=== PATIENT | female | born 1955 | race Caucasian/White ===

== ENCOUNTER 2017-01-09 02:25 | Emergency (ER) | payer MEDICARE, OTHER ==
[~2017-01-09] VITALS: Ht 154.9 cm; Wt 59.9 kg
[~2017-01-09 02:25] MED LIST: ASPI81TA31 PO; BENA40TA2 PO; FLUO10TA PO
[2017-01-09] MEDS ORDERED: IV NORMAL SALINE 1000 ML BAG IV ONE (03:15)
[2017-01-09] MEDS ORDERED: MORPHINE SULFATE 2 MG/1 ML DISP.SYRIN IV ONE (03:15)
[2017-01-09] MEDS ORDERED: PROCHLORPERAZINE EDISYLATE 10 MG/2 ML VIAL IV ONE (03:15)
[2017-01-09] MEDS ORDERED: MORPHINE SULFATE 2 MG/1 ML DISP.SYRIN ONE (03:34)
[2017-01-09] MEDS ORDERED: PROCHLORPERAZINE EDISYLATE 10 MG/2 ML VIAL ONE ×2 (03:34→03:39)
[2017-01-09 03:50] LABS: BILIRUBIN,DIRECT 0.1 mg/dL (0.0-0.2); BILIRUBIN,TOTAL 0.3 mg/dL (0.2-1.0); CREATININE 0.9 mg/dL (0.6-1.3); POTASSIUM 4.2 mmol/L (3.5-5.1); TOTAL PROTEIN, SERUM 7.2 g/dL (6.4-8.2)
[2017-01-09 03:58] LABS: BASOPHILS % (AUTO) 0.2 % (0.0-2.0); EOSINOPHILS % (AUTO) 0.2 % (0.0-7.0); HEMATOCRIT 39.1 % (37-47); HEMOGLOBIN 12.9 G/DL (12.0-16.0); LYMPHOCYTES # (AUTO) 1.3 K/UL (0.8-4.8); LYMPHOCYTES % (AUTO) 11.4 % (20.5-51.5); MEAN CORPUSCULAR HEMOGLOBIN 28.6 UUG (27.0-31.0); MEAN CORPUSCULAR HGB CONC 33 g/dL (32.0-37.0); MEAN CORPUSCULAR VOLUME 86.7 FL (81.0-99.0); MONOCYTES # (AUTO) 0.4 K/UL (0.1-1.30); MONOCYTES % (AUTO) 3.6 % (0.0-11.0); NEUTROPHILS # (AUTO) 9.6 K/UL (1.8-8.9); NEUTROPHILS % (AUTO) 84.6 % (38.5-71.5); PLATELET COUNT (AUTO) 321 K/UL (150-450); RED BLOOD CELL COUNT(AUTO) 4.51 MIL/UL (4.2-5.4); WHITE BLOOD COUNT (AUTO) 11.3 K/UL (4.0-11.2)
--- NOTE | 2017-01-09 04:00 | NUR ---
Patient is resting comfortably in bed with eyes closed
[2017-01-09 04:29] VITALS: BP 138/89
--- NOTE | 2017-01-09 04:32 | NUR ---
Patient discharged to home in stable conditon. Written and verbal after care instructions given. Patient verbalizes understanding of instructions.
== END 2017-01-09 04:32 | disposition home or self-care (01) ==
LOC: ER 02:26
DX: R39.2 Extrarenal uremia (principal); F41.9 Anxiety disorder, unspecified; R11.2 Nausea with vomiting, unspecified; Z88.8 Allergy status to other drugs, medicaments and biological substances
CPT/HCPCS: 36415; 80048; 80076; 83690; 85025; 93005; 96361; 96374; 96375; 99285; A4663; J0780; J2270; J7030

== ENCOUNTER 2017-01-12 12:31 | Emergency (ER) | payer MEDICARE, OTHER ==
[~2017-01-12] VITALS: Ht 154.9 cm; Wt 59.9 kg
[2017-01-12] MEDS ORDERED: BENA40TA67 PO (12:39)
[2017-01-12] MEDS ORDERED: MIRT15TA PO (12:39)
[2017-01-12] MEDS ORDERED: OLAN10TA3 PO (12:39)
[2017-01-12] MEDS ORDERED: LORAZEPAM 2 MG/1 ML VIAL IV ONE (12:45)
[2017-01-12] MEDS ORDERED: IV NORMAL SALINE 1000 ML BAG IV ONE (12:45)
[2017-01-12] MEDS ORDERED: PROCHLORPERAZINE EDISYLATE 10 MG/2 ML VIAL IV ONE (13:15)
[2017-01-12] MEDS ORDERED: LORAZEPAM 2 MG/1 ML VIAL ONE (13:15)
[2017-01-12] MEDS ORDERED: PROCHLORPERAZINE EDISYLATE 10 MG/2 ML VIAL ONE (13:20)
--- NOTE | 2017-01-12 13:23 | NUR ---
EDISON speaking with Dr. Copeland, patient's psychiatrist, to discuss medication changes.
[2017-01-12 13:37] LABS: BASOPHILS # (AUTO) 0.3 K/uL (0.0-8.0); HEMOGLOBIN 14.1 G/DL (12.0-16.0); MONOCYTES # (AUTO) 0.2 K/UL (0.1-1.30)
[2017-01-12 13:43] LABS: CREATININE 0.7 mg/dL (0.6-1.3)
[2017-01-12 13:48] LABS: BASOPHILS % (AUTO) 1.8 % (0.0-2.0); EOSINOPHILS % (AUTO) 0.1 % (0.0-7.0); HEMATOCRIT 42.8 % (37-47); LYMPHOCYTES # (AUTO) 1.4 K/UL (0.8-4.8); LYMPHOCYTES % (AUTO) 9.6 % (20.5-51.5); MEAN CORPUSCULAR HEMOGLOBIN 28.5 UUG (27.0-31.0); MEAN CORPUSCULAR HGB CONC 33 g/dL (32.0-37.0); MEAN CORPUSCULAR VOLUME 86.5 FL (81.0-99.0); NEUTROPHILS # (AUTO) 13.2 K/UL (1.8-8.9); NEUTROPHILS % (AUTO) 87.5 % (38.5-71.5); PLATELET COUNT (AUTO) 311 K/UL (150-450); RED BLOOD CELL COUNT(AUTO) 4.95 MIL/UL (4.2-5.4); WHITE BLOOD COUNT (AUTO) 15.1 K/UL (4.0-11.2)
[2017-01-12 13:55] LABS: BILIRUBIN,DIRECT 0.1 mg/dL (0.0-0.2); BILIRUBIN,TOTAL 0.3 mg/dL (0.2-1.0); TOTAL PROTEIN, SERUM 8.3 g/dL (6.4-8.2)
--- NOTE | 2017-01-12 14:28 | NUR ---
Patient is resting comfortably in bed with eyes closed, NAD noted.
--- NOTE | 2017-01-12 14:39 | NUR ---
IV removed. Catheter intact and site benign. Pressure and 4x4 gauze applied to site. No bleeding noted.
[2017-01-12 14:40] VITALS: BP 176/100
--- NOTE | 2017-01-12 14:41 | NUR ---
Patient discharged to home in stable conditon. Written and verbal after care instructions given. Patient verbalizes understanding of instructions. pt left ER w/ steady gait accompained by daughter.
== END 2017-01-12 14:42 | disposition home or self-care (01) ==
LOC: ER 12:31
DX: R11.2 Nausea with vomiting, unspecified (principal); Z79.82 Long term (current) use of aspirin; Z88.8 Allergy status to other drugs, medicaments and biological substances
CPT/HCPCS: 36415; 70030-TC; 71010; 83690; 85025; 85730; 93005; A4663; J0780; J2060; J7030

== ENCOUNTER 2017-01-14 08:12 | Emergency (ER) | payer MEDICARE, OTHER ==
[~2017-01-14] VITALS: Ht 154.9 cm; Wt 62.6 kg
[~2017-01-14 08:12] MED LIST changes: +BENA40TA67 PO; +MIRT15TA PO; +OLAN10TA3 PO
[2017-01-14] MEDS ORDERED: IV NORMAL SALINE 1000 ML BAG IV ONE (08:45)
[2017-01-14] MEDS ORDERED: PROCHLORPERAZINE EDISYLATE 10 MG/2 ML VIAL IV ONE (08:45)
[2017-01-14] MEDS ORDERED: PROCHLORPERAZINE EDISYLATE 10 MG/2 ML VIAL ONE ×2 (09:03→11:00)
[2017-01-14] MEDS ORDERED: CLONIDINE HCL 0.1 MG TABLET PO ONE ×2 (09:15→10:15)
[2017-01-14] MEDS ORDERED: CLONIDINE HCL 0.1 MG TABLET ONE ×2 (09:29→10:31)
[2017-01-14] MEDS ORDERED: LORAZEPAM 2 MG/1 ML VIAL IV ONE (09:30)
[2017-01-14 09:34] LABS: CREATININE 0.8 mg/dL (0.6-1.3)
[2017-01-14 09:35] LABS: BASOPHILS % (AUTO) 0.4 % (0.0-2.0); EOSINOPHILS % (AUTO) 0.3 % (0.0-7.0); HEMATOCRIT 38.7 % (37-47); HEMOGLOBIN 12.9 G/DL (12.0-16.0); LYMPHOCYTES # (AUTO) 1.1 K/UL (0.8-4.8); LYMPHOCYTES % (AUTO) 11.5 % (20.5-51.5); MEAN CORPUSCULAR HEMOGLOBIN 28.7 UUG (27.0-31.0); MEAN CORPUSCULAR HGB CONC 33 g/dL (32.0-37.0); MEAN CORPUSCULAR VOLUME 86.6 FL (81.0-99.0); MONOCYTES # (AUTO) 0.4 K/UL (0.1-1.30); MONOCYTES % (AUTO) 4.4 % (0.0-11.0); NEUTROPHILS # (AUTO) 8.4 K/UL (1.8-8.9); NEUTROPHILS % (AUTO) 83.4 % (38.5-71.5); PLATELET COUNT (AUTO) 307 K/UL (150-450); RED BLOOD CELL COUNT(AUTO) 4.48 MIL/UL (4.2-5.4); WHITE BLOOD COUNT (AUTO) 9.9 K/UL (4.0-11.2)
[2017-01-14] MEDS ORDERED: LORAZEPAM 2 MG/1 ML VIAL ONE ×2 (09:37→11:00)
[2017-01-14 09:39] LABS: BILIRUBIN,DIRECT 0.1 mg/dL (0.0-0.2); BILIRUBIN,TOTAL 0.3 mg/dL (0.2-1.0); TOTAL PROTEIN, SERUM 7.6 g/dL (6.4-8.2)
--- NOTE | 2017-01-14 09:50 | NUR ---
pt resting, arousable, daughter at bedside, ra sat 98%
--- NOTE | 2017-01-14 11:00 | NUR ---
per pt daughter, pt missed the am dose of lotensin 40 mg.
--- NOTE | 2017-01-14 11:00 | NUR ---
annabel marte at bedside talking to pt daughter.
[2017-01-14] MEDS ORDERED: BENAZEPRIL HCL 10 MG TABLET PO ONE (11:15)
[2017-01-14] MEDS ORDERED: BENAZEPRIL HCL 10 MG TABLET ONE (11:18)
--- NOTE | 2017-01-14 11:25 | NUR ---
pt daughter and the pt want to go home. pt says has blood pressure cuff at home and is able to monitor the blood pressure at home. pt seems comfortable. notified.
--- NOTE | 2017-01-14 11:26 | NUR ---
Patient discharged to home in stable conditon. Written and verbal after care instructions given. Patient verbalizes understanding of instructions.pt walks in steady gait. pt says feels better, pt not driving. pt accompanied by daughter.
[2017-01-14 11:27] VITALS: BP 171/101
== END 2017-01-14 11:40 | disposition home or self-care (01) ==
LOC: ER 08:12
DX: F41.9 Anxiety disorder, unspecified (principal); R11.2 Nausea with vomiting, unspecified; I10 Essential (primary) hypertension; F32.9 Major depressive disorder, single episode, unspecified; Z88.8 Allergy status to other drugs, medicaments and biological substances
CPT/HCPCS: 36415; 71010; 76705; 80048; 80076; 83690; 84484; 85025; 85730; 93005; 96361; 96374; 96375; 99285; A4663; J0780; J2060; J7030; 70030-TC

== ENCOUNTER 2017-05-18 14:49 | Emergency (ER) | payer MEDICARE, OTHER ==
[~2017-05-18] VITALS: Ht 154.9 cm; Wt 59.0 kg
[~2017-05-18 14:49] MED LIST changes: -BENA40TA2 PO; -FLUO10TA PO
[2017-05-18 16:19] LABS: BASOPHILS % (AUTO) 0.1 % (0.0-2.0); HEMATOCRIT 42.2 % (31.2-41.9); HEMOGLOBIN 14.1 g/dL (10.9-14.3); LYMPHOCYTES # (AUTO) 0.9 K/uL (20.0-40.0); LYMPHOCYTES % (AUTO) 6.8 % (20.5-51.5); MEAN CORPUSCULAR HEMOGLOBIN 28.6 uug (24.7-32.8); MEAN CORPUSCULAR HGB CONC 33 g/dL (32.3-35.6); MEAN CORPUSCULAR VOLUME 85.6 fL (75.5-95.3); MONOCYTES # (AUTO) 0.7 K/uL (2.0-10.0); NEUTROPHILS % (AUTO) 88.1 % (38.5-71.5); PLATELET COUNT (AUTO) 238 K/uL (179-408); RED BLOOD CELL COUNT(AUTO) 4.93 MIL/uL (3.63-4.92); WHITE BLOOD COUNT (AUTO) 13.6 K/uL (3.8-11.8)
[2017-05-18 16:25] LABS: CREATININE 0.9 mg/dL (0.6-1.3); POTASSIUM 4.3 mmol/L (3.5-5.1)
[2017-05-18] MEDS: IV NORMAL SALINE 500 ML BAG IV ONE (16:30)
[2017-05-18 16:31] LABS: BILIRUBIN,DIRECT 0.2 mg/dL (0.0-0.2); BILIRUBIN,TOTAL 0.4 mg/dL (0.2-1.0); TOTAL PROTEIN, SERUM 7.6 g/dL (6.4-8.2)
[2017-05-18 17:23] LABS: BAND % (MANUAL) 28 % (0-10); LYMPHOCYTES % (MANUAL) 10 % (20-40); MONOCYTES % (MANUAL) 6 % (2-10); NEUTROPHILS % (MANUAL) 56 % (42-75)
[2017-05-18] MEDS: CEFTRIAXONE 1 G in IV DEXTROSE 5% 50 ML IV ONE (17:35)
[2017-05-18] MEDS ORDERED: CEFTRIAXONE 1 G VIAL ONE (17:58)
--- NOTE | 2017-05-18 18:33 | NUR ---
Patient discharged to home in stable conditon. Written and verbal after care instructions given. Patient verbalizes understanding of instructions.PT WITH DAUGHTER. NO SIGN OF DISTRESS. PT TO HER BASELINE.
[2017-05-18 18:35] VITALS: BP 141/86
== END 2017-05-18 18:38 | disposition home or self-care (01) ==
LOC: ER 14:49
DX: J18.9 Pneumonia, unspecified organism (principal); Z79.82 Long term (current) use of aspirin; Z88.8 Allergy status to other drugs, medicaments and biological substances
CPT/HCPCS: 36415; 71010; 71250; 80048; 80076; 83605; 84484; 85025; 85730; 87040 ×2; 93005; 96361; 96365; 99285; A4663; J0696; J3490; J7040; 70030-TC

== ENCOUNTER 2017-05-23 18:26 | Inpatient (IN) | payer MEDICARE, OTHER ==
[~2017-05-23] VITALS: Ht 154.9 cm; Wt 63.5 kg
[~2017-05-23 18:26] MED LIST changes: -ASPI81TA31 PO; -OLAN10TA3 PO
[2017-05-23] MEDS ORDERED: ALBUTEROL SULFATE 2.5 MG/3 ML NEBU NEB ONE (22:00)
[2017-05-23] MEDS ORDERED: IPRATROPIUM BROMIDE 0.5 MG/2.5 ML NEBU NEB ONE (22:00)
[2017-05-23] MEDS ORDERED: IV NORMAL SALINE 1000 ML BAG IV ONE (22:00)
[2017-05-23] MEDS ORDERED: CLINDAMYCIN PHOSPHATE IV 600 MG in IV DEXTROSE 5% 100 ML IV ONE (22:00)
[2017-05-23] MEDS ORDERED: LEVOFLOXACIN 750MG/D5W 150 ML IV ONE ×2 (22:00→23:33)
[2017-05-23] MEDS ORDERED: CLINDAMYCIN PHOSPHATE 600 MG/4 ML VIAL ONE (22:21)
[2017-05-23] MEDS ORDERED: ALBUTEROL SULFATE 2.5 MG/3 ML NEBU ONE (22:23)
[2017-05-23] MEDS ORDERED: IPRATROPIUM BROMIDE 0.5 MG/2.5 ML NEBU ONE (22:23)
[2017-05-23 22:29] LABS: BASOPHILS % (AUTO) 0.1 % (0.0-2.0); EOSINOPHILS % (AUTO) 0.1 % (0.0-7.0); HEMATOCRIT 33.2 % (31.2-41.9); HEMOGLOBIN 11.3 g/dL (10.9-14.3); LYMPHOCYTES # (AUTO) 1.4 K/uL (20.0-40.0); LYMPHOCYTES % (AUTO) 8.4 % (20.5-51.5); MEAN CORPUSCULAR HEMOGLOBIN 29.4 uug (24.7-32.8); MEAN CORPUSCULAR HGB CONC 34 g/dL (32.3-35.6); MEAN CORPUSCULAR VOLUME 86.2 fL (75.5-95.3); MONOCYTES # (AUTO) 2.1 K/uL (2.0-10.0); MONOCYTES % (AUTO) 12.2 % (0.0-11.0); NEUTROPHILS # (AUTO) 13.4 K/uL (1.8-8.9); NEUTROPHILS % (AUTO) 79.2 % (38.5-71.5); PLATELET COUNT (AUTO) 462 K/uL (179-408); RED BLOOD CELL COUNT(AUTO) 3.85 MIL/uL (3.63-4.92); WHITE BLOOD COUNT (AUTO) 16.9 K/uL (3.8-11.8)
[2017-05-23 22:38] LABS: CREATININE 0.8 mg/dL (0.6-1.3); POTASSIUM 4.2 mmol/L (3.5-5.1)
[2017-05-23 22:50] LABS: BILIRUBIN,DIRECT 0.2 mg/dL (0.0-0.2); BILIRUBIN,TOTAL 0.4 mg/dL (0.2-1.0); TOTAL PROTEIN, SERUM 7.2 g/dL (6.4-8.2)
[2017-05-23] MEDS ORDERED: MIRTAZAPINE 15 MG TABLET PO ONE (23:45)
[2017-05-23 23:48] LABS: BAND % (MANUAL) 4 % (0-10); EOSINOPHILS % (MANUAL) 1 % (0-8); LYMPHOCYTES % (MANUAL) 15 % (20-40); MONOCYTES % (MANUAL) 5 % (2-10); NEUTROPHILS % (MANUAL) 75 % (42-75)
[2017-05-23] MEDS ORDERED: MIRTAZAPINE 15 MG TABLET ONE (23:58)
[2017-05-24] MEDS ORDERED: HYDROCODONE/APAP 5-325MG TABLET PO PRN (01:15)
[2017-05-24] MEDS ORDERED: ENOXAPARIN SODIUM 40 MG/0.4 ML DISP.SYRIN SQ SCH (01:15)
[2017-05-24] MEDS ORDERED: MAGNESIUM HYDROXIDE 30 ML LIQUID UDC PO PRN (01:15)
[2017-05-24] MEDS ORDERED: ONDANSETRON 4 MG/2 ML VIAL IV PRN (01:15)
[2017-05-24] MEDS ORDERED: LEVOFLOXACIN 500 MG/D5W 500 MG in PREMIXED 1 EACH IV SCH (01:15)
[2017-05-24] MEDS ORDERED: ACETAMINOPHEN 325 MG TABLET PO PRN (01:15)
[2017-05-24] MEDS ORDERED: Z GUARD REMEDY PASTE 57 GM TUBE TOP PRN (01:15)
[2017-05-24] MEDS: ALBUTEROL SULFATE 2.5 MG/3 ML NEBU NEB PRN ×3 (03:37→22:48)
[2017-05-24] MEDS ORDERED: ALBUTEROL SULFATE 2.5 MG/3 ML NEBU ONE ×3 (03:50→15:48)
[2017-05-24] MEDS: BENAZEPRIL HCL 20 MG TABLET PO SCH (12:09)
[2017-05-24] MEDS: IV NS 1000 ML 1,000 ML IV PRN ×2 (12:30→22:18)
[2017-05-24] MEDS ORDERED: IPRATROPIUM BROMIDE 0.5 MG/2.5 ML NEBU NEB PRN (15:00)
[2017-05-24] MEDS: methylPREDNISolone SOD SUCC 40 MG/ML VIAL IV SCH ×3 (15:48→23:25)
[2017-05-24] MEDS ORDERED: methylPREDNISolone SOD SUCC 40 MG/ML VIAL ONE (16:02)
[2017-05-24 18:41] VITALS: BP 156/82
[2017-05-24 21:01] VITALS: BP 152/97
[2017-05-24] MEDS: MIRTAZAPINE 15 MG TABLET PO SCH (22:17)
[2017-05-24] MEDS: LEVOFLOXACIN 500 MG/D5W 500 MG in PREMIXED 1 EACH IV SCH (22:18)
[2017-05-24] MEDS: IPRATROPIUM BROMIDE 0.5 MG/2.5 ML NEBU NEB PRN (22:48)
[2017-05-25 00:39] VITALS: BP 137/69
[2017-05-25] MEDS: IPRATROPIUM BROMIDE 0.5 MG/2.5 ML NEBU NEB PRN (04:39)
[2017-05-25] MEDS: ALBUTEROL SULFATE 2.5 MG/3 ML NEBU NEB PRN (04:39)
[2017-05-25] MEDS: methylPREDNISolone SOD SUCC 40 MG/ML VIAL IV SCH ×3 (05:23→18:00)
[2017-05-25 05:33] VITALS: BP 154/96
[2017-05-25 06:55] LABS: BASOPHILS % (AUTO) 0.2 % (0.0-2.0); HEMATOCRIT 30.5 % (31.2-41.9); HEMOGLOBIN 10.1 g/dL (10.9-14.3); LYMPHOCYTES # (AUTO) 0.8 K/uL (20.0-40.0); LYMPHOCYTES % (AUTO) 9.7 % (20.5-51.5); MEAN CORPUSCULAR HEMOGLOBIN 28.7 uug (24.7-32.8); MEAN CORPUSCULAR HGB CONC 33 g/dL (32.3-35.6); MEAN CORPUSCULAR VOLUME 86.5 fL (75.5-95.3); MONOCYTES # (AUTO) 0.2 K/uL (2.0-10.0); NEUTROPHILS # (AUTO) 6.9 K/uL (1.8-8.9); NEUTROPHILS % (AUTO) 87.1 % (38.5-71.5); PLATELET COUNT (AUTO) 499 K/uL (179-408); RED BLOOD CELL COUNT(AUTO) 3.53 MIL/uL (3.63-4.92); WHITE BLOOD COUNT (AUTO) 7.9 K/uL (3.8-11.8)
[2017-05-25 07:02] LABS: CREATININE 0.6 mg/dL (0.6-1.3); PHOSPHOROUS 3.3 mg/dL (2.5-4.9); POTASSIUM 4.2 mmol/L (3.5-5.1)
[2017-05-25] MEDS: ENOXAPARIN SODIUM 40 MG/0.4 ML DISP.SYRIN SQ SCH (08:00)
[2017-05-25] MEDS: BENAZEPRIL HCL 20 MG TABLET PO SCH (08:00)
[2017-05-25] MEDS: OSELTAMIVIR PHOSPHATE 75 MG CAPSULE PO SCH ×2 (09:39→20:08)
[2017-05-25 10:59] LABS: MAGNESIUM 1.9 mg/dL (1.8-2.4)
[2017-05-25 11:08] VITALS: BP 139/88
[2017-05-25] MEDS: IV NS 1000 ML 1,000 ML IV PRN (12:08)
[2017-05-25 15:00] VITALS: BP 157/91
[2017-05-25 20:00] VITALS: BP 157/92
[2017-05-25] MEDS: MIRTAZAPINE 15 MG TABLET PO SCH (20:08)
[2017-05-25] MEDS: LEVOFLOXACIN 500 MG/D5W 500 MG in PREMIXED 1 EACH IV SCH (22:45)
[2017-05-26] MEDS: methylPREDNISolone SOD SUCC 40 MG/ML VIAL IV SCH ×4 (00:17→11:19)
[2017-05-26] MEDS ORDERED: methylPREDNISolone SOD SUCC 125 MG/2 ML VIAL ONE (00:33)
[2017-05-26] MEDS: IV NS 1000 ML 1,000 ML IV PRN (02:26)
[2017-05-26 04:28] VITALS: BP 133/85
[2017-05-26] MEDS: BENAZEPRIL HCL 20 MG TABLET PO SCH (08:08)
[2017-05-26] MEDS: OSELTAMIVIR PHOSPHATE 75 MG CAPSULE PO SCH (08:08)
[2017-05-26] MEDS: ENOXAPARIN SODIUM 40 MG/0.4 ML DISP.SYRIN SQ SCH (08:09)
[2017-05-26 11:56] VITALS: BP 161/92
[2017-05-26 14:30] VITALS: BP 162/98
== END 2017-05-26 15:00 | disposition home or self-care (01) | DRG 195 ==
LOC: ER 18:27 → TRANSITION 05-24 10:29 → TELE 05-24 17:07 → MED 05-25 11:54
PROVIDERS: ADMIT Internal Medicine
DX: J15.9 Unspecified bacterial pneumonia (principal); D64.9 Anemia, unspecified; J20.9 Acute bronchitis, unspecified; E66.9 Obesity, unspecified; Z68.26 Body mass index [BMI] 26.0-26.9, adult; F32.9 Major depressive disorder, single episode, unspecified; F41.9 Anxiety disorder, unspecified; Z79.82 Long term (current) use of aspirin; I70.0 Atherosclerosis of aorta
CPT/HCPCS: 36415; 70030-TC; 71045; 83605; 83735; 84100; 85025; 85730; 87040; 87400; 93005; 94640; 94664; A4663; J1650; J1956; J2920; J2930; J3490; J3590; J7030; J7060

== ENCOUNTER 2017-10-11 09:54 | Emergency (ER) | payer MEDICARE, OTHER ==
[~2017-10-11] VITALS: Ht 157.5 cm; Wt 62.6 kg
[2017-10-11] MEDS ORDERED: OLAN10TA3 PO (10:05)
[2017-10-11] MEDS ORDERED: IV NORMAL SALINE 500 ML BAG IV ONE (10:15)
[2017-10-11] MEDS ORDERED: LORAZEPAM 2 MG/1 ML VIAL IV ONE (10:15)
[2017-10-11] MEDS ORDERED: LORAZEPAM 2 MG/1 ML VIAL ONE (10:25)
--- NOTE | 2017-10-11 10:50 | NUR ---
Patient is resting comfortably in bed with eyes closed, NAD noted.
[2017-10-11 11:07] VITALS: BP 188/96
--- NOTE | 2017-10-11 11:07 | NUR ---
Patient discharged to home in stable conditon. Written and verbal after care instructions given. Patient verbalizes understanding of instructions. Pt left Er accompained by daughter.
--- NOTE | 2017-10-11 11:07 | NUR ---
IV removed. Catheter intact and site benign. Pressure and 4x4 gauze applied to site. No bleeding noted.
[2017-10-28] MEDS ORDERED: LORA0.5T PO (10:08)
[2017-10-28] MEDS ORDERED: SERT25TA PO (10:08)
[2017-10-28] MEDS ORDERED: BUSP5TAB3 PO (10:08)
[2017-10-28] MEDS ORDERED: METO-295 PO (10:08)
== END 2017-10-11 11:08 | disposition home or self-care (01) ==
LOC: ER 09:56
DX: F41.9 Anxiety disorder, unspecified (principal); F32.9 Major depressive disorder, single episode, unspecified; R11.2 Nausea with vomiting, unspecified
CPT/HCPCS: A4663; J2060; J7030

== ENCOUNTER 2018-11-28 03:36 | Emergency (ER) | payer MEDICARE, OTHER ==
[~2018-11-28] VITALS: Ht 162.6 cm; Wt 61.2 kg
[~2018-11-28 03:36] MED LIST changes: +BUSP5TAB3 PO; +LORA0.5T PO; +METO-295 PO; +OLAN10TA3 PO; +SERT25TA PO
[2018-11-28] MEDS ORDERED: diphenhydrAMINE 50 MG/1 ML VIAL ONE (03:50)
[2018-11-28] MEDS ORDERED: PROCHLORPERAZINE EDISYLATE 10 MG/2 ML VIAL ONE (03:51)
[2018-11-28] MEDS ORDERED: ONDANSETRON 4 MG/2 ML VIAL ONE (03:51)
[2018-11-28] MEDS ORDERED: LORAZEPAM 2 MG/1 ML VIAL ONE (03:52)
[2018-11-28] MEDS: diphenhydrAMINE 50 MG/1 ML VIAL IV ONE (03:53)
[2018-11-28] MEDS: PROCHLORPERAZINE EDISYLATE 10 MG/2 ML VIAL IV ONE (03:53)
[2018-11-28] MEDS: LORAZEPAM 2 MG/1 ML VIAL IV ONE (03:53)
[2018-11-28] MEDS: ONDANSETRON IV *ER 4 MG/2 ML VIAL IV ONE (03:54)
--- NOTE | 2018-11-28 03:56 | NUR ---
ER MD AT BEDSIDE FOR PATIENT EVALUATION
[2018-11-28 04:22] LABS: CREATININE 0.9 mg/dL (0.6-1.3); POTASSIUM 4.3 mmol/L (3.5-5.1)
[2018-11-28 04:24] LABS: BASOPHILS % (AUTO) 0.2 % (0.0-2.0); HEMOGLOBIN 12.5 g/dL (10.9-14.3); LYMPHOCYTES # (AUTO) 1.1 K/uL (20.0-40.0); MEAN CORPUSCULAR HEMOGLOBIN 28.8 uug (24.7-32.8); MEAN CORPUSCULAR HGB CONC 34 g/dL (32.3-35.6); MEAN CORPUSCULAR VOLUME 85.7 fL (75.5-95.3); MONOCYTES # (AUTO) 0.2 K/uL (2.0-10.0); MONOCYTES % (AUTO) 1.8 % (0.0-11.0); NEUTROPHILS # (AUTO) 8.8 K/uL (1.8-8.9); PLATELET COUNT (AUTO) 300 K/uL (179-408); RED BLOOD CELL COUNT(AUTO) 4.32 MIL/uL (3.63-4.92); WHITE BLOOD COUNT (AUTO) 10.1 K/uL (3.8-11.8)
--- NOTE | 2018-11-28 04:25 | NUR ---
CHRISTINE [phone] (DAUGHTER) CALL WHEN PATIENT IS READY FOR DIRECTOR OF INFORMATICS/DC HOME
[2018-11-28 04:27] LABS: BILIRUBIN,DIRECT 0.1 mg/dL (0.0-0.2); BILIRUBIN,TOTAL 0.4 mg/dL (0.2-1.0); TOTAL PROTEIN, SERUM 7.7 g/dL (6.4-8.2)
--- NOTE | 2018-11-28 06:02 | NUR ---
PATIENT ASLEEP IN BED, RESPONSIVE TO VERBAL AND TACTILE STIMULI. NO ACUTE DISTRESS NOTED. VSS
--- NOTE | 2018-11-28 06:51 | NUR ---
Report to Jasbir Martínez
--- NOTE | 2018-11-28 10:38 | NUR ---
PT IS SLEEPING IN BED #2A. PT's BROTHER IS AT BEDSIDE.
--- NOTE | 2018-11-28 12:29 | NUR ---
PT WAS D/C'd TO HOME AFTER DR GAMINO RE-EVALUATION. D/C INSTRUCTIONS GIVEN TO THE PT.
[2018-11-28 12:32] VITALS: BP 145/88
== END 2018-11-28 12:33 | disposition home or self-care (01) ==
LOC: ER 03:38
DX: F41.9 Anxiety disorder, unspecified (principal); R11.10 Vomiting, unspecified; G47.00 Insomnia, unspecified; M21.371 Foot drop, right foot; I10 Essential (primary) hypertension; F41.0 Panic disorder [episodic paroxysmal anxiety]; Z88.8 Allergy status to other drugs, medicaments and biological substances; Z79.899 Other long term (current) drug therapy
CPT/HCPCS: 29505; 36415; 73562; 74022; 80048; 80076; 83690; 85025; 93005; 96374; 96375; 99284; J0780; J1200; J2060; A4663; J2405

== ENCOUNTER 2018-11-30 07:53 | Emergency (ER) | payer MEDICARE, OTHER ==
[~2018-11-30] VITALS: Ht 152.4 cm; Wt 62.6 kg
--- NOTE | 2018-11-30 08:03 | NUR ---
DR ZIEGLER AT THE BEDSIDE FOR MSE.
[2018-11-30] MEDS ORDERED: LORAZEPAM 2 MG/1 ML VIAL ONE (08:10)
[2018-11-30] MEDS ORDERED: LORAZEPAM 2 MG/1 ML VIAL IM ONE (08:15)
[2018-11-30] MEDS ORDERED: diphenhydrAMINE 50 MG/1 ML VIAL ONE (08:29)
[2018-11-30] MEDS ORDERED: diphenhydrAMINE 50 MG/1 ML VIAL IM ONE (08:30)
[2018-11-30 08:32] VITALS: BP 145/89
--- NOTE | 2018-11-30 08:45 | NUR ---
Patient discharged to home in stable conditon. Written and verbal after care instructions given. Patient verbalizes understanding of instructions.
== END 2018-11-30 08:45 | disposition home or self-care (01) ==
LOC: ER 07:53
DX: F41.9 Anxiety disorder, unspecified (principal); R11.10 Vomiting, unspecified; I10 Essential (primary) hypertension; F41.0 Panic disorder [episodic paroxysmal anxiety]; Z88.8 Allergy status to other drugs, medicaments and biological substances; Z79.899 Other long term (current) drug therapy
CPT/HCPCS: 96372 ×2; 99284; J1200; J2060; A4663

== ENCOUNTER 2018-12-01 23:28 | Emergency (ER) | payer MEDICARE, OTHER ==
[~2018-12-01] VITALS: Ht 160 cm; Wt 61.7 kg
[2018-12-02] MEDS ORDERED: IV NORMAL SALINE 500 ML BAG IV ONE (00:15)
[2018-12-02] MEDS ORDERED: LORAZEPAM 2 MG/1 ML VIAL IV ONE (00:15)
[2018-12-02] MEDS ORDERED: PROCHLORPERAZINE EDISYLATE 10 MG/2 ML VIAL IV ONE (00:15)
[2018-12-02 00:17] LABS: BASOPHILS # (AUTO) 0.1 K/uL (0.0-8.0); BASOPHILS % (AUTO) 0.8 % (0.0-2.0); EOSINOPHILS # (AUTO) 0.1 K/uL (0.0-0.7); EOSINOPHILS % (AUTO) 0.9 % (0.0-7.0); HEMATOCRIT 38.2 % (31.2-41.9); HEMOGLOBIN 12.8 g/dL (10.9-14.3); LYMPHOCYTES # (AUTO) 2.1 K/uL (20.0-40.0); LYMPHOCYTES % (AUTO) 16.5 % (20.5-51.5); MEAN CORPUSCULAR HEMOGLOBIN 28.8 uug (24.7-32.8); MEAN CORPUSCULAR HGB CONC 34 g/dL (32.3-35.6); MEAN CORPUSCULAR VOLUME 85.9 fL (75.5-95.3); MONOCYTES # (AUTO) 0.7 K/uL (2.0-10.0); MONOCYTES % (AUTO) 5.2 % (0.0-11.0); NEUTROPHILS # (AUTO) 9.9 K/uL (1.8-8.9); NEUTROPHILS % (AUTO) 76.6 % (38.5-71.5); PLATELET COUNT (AUTO) 379 K/uL (179-408); RED BLOOD CELL COUNT(AUTO) 4.45 MIL/uL (3.63-4.92)
[2018-12-02] MEDS ORDERED: LORAZEPAM 2 MG/1 ML VIAL ONE (00:18)
[2018-12-02] MEDS ORDERED: PROCHLORPERAZINE EDISYLATE 10 MG/2 ML VIAL ONE (00:18)
[2018-12-02 00:26] LABS: CREATININE 0.9 mg/dL (0.6-1.3); POTASSIUM 4.5 mmol/L (3.5-5.1)
[2018-12-02 00:32] LABS: BILIRUBIN,DIRECT 0.1 mg/dL (0.0-0.2); BILIRUBIN,TOTAL 0.4 mg/dL (0.2-1.0); TOTAL PROTEIN, SERUM 7.7 g/dL (6.4-8.2)
--- NOTE | 2018-12-02 01:18 | NUR ---
Pt is resting in bed comfortably. No episodes of vomiting. Daughter at bedside. Vital signs stable.
--- NOTE | 2018-12-02 01:50 | NUR ---
IV removed. Catheter intact and site benign. Pressure and 4x4 gauze applied to site. No bleeding noted.
--- NOTE | 2018-12-02 01:55 | NUR ---
Patient discharged to home in stable conditon. Written and verbal after care instructions given. Patient verbalizes understanding of instructions. Pt walked out of ER in stable gait accompanied by daughter. Pt states she feels better. No N/V. PO challenge well tolerated.
[2018-12-02 01:57] VITALS: BP 141/79
== END 2018-12-02 01:58 | disposition home or self-care (01) ==
LOC: ER 23:28
DX: F41.9 Anxiety disorder, unspecified (principal); R11.10 Vomiting, unspecified; F41.0 Panic disorder [episodic paroxysmal anxiety]; F32.9 Major depressive disorder, single episode, unspecified; Z88.8 Allergy status to other drugs, medicaments and biological substances; Z79.899 Other long term (current) drug therapy
CPT/HCPCS: 36415; 80048; 80076; 83690; 84484; 85025; 93005; 96374; 96375; 99284; J0780; J2060; 70030-TC; A4663; J7040

== ENCOUNTER 2018-12-06 21:33 | Inpatient (IN) | payer MEDICARE, OTHER ==
[~2018-12-06] VITALS: Ht 190.5 cm; Wt 59.9 kg
[2018-12-06] MEDS ORDERED: PROP60TA18 PO (21:43)
[2018-12-06] MEDS ORDERED: MORPHINE SULFATE 2 MG/1 ML DISP.SYRIN IV ONE (22:15)
[2018-12-06] MEDS ORDERED: PROCHLORPERAZINE EDISYLATE 10 MG/2 ML VIAL IV ONE (22:15)
[2018-12-06] MEDS ORDERED: IV NORMAL SALINE 1000 ML BAG IV ONE (22:15)
[2018-12-06] MEDS ORDERED: diphenhydrAMINE 50 MG/1 ML VIAL IV ONE (22:15)
[2018-12-06] MEDS ORDERED: diphenhydrAMINE 50 MG/1 ML VIAL ONE (22:28)
[2018-12-06] MEDS ORDERED: MORPHINE SULFATE 2 MG/1 ML DISP.SYRIN ONE (22:28)
[2018-12-06] MEDS ORDERED: PROCHLORPERAZINE EDISYLATE 10 MG/2 ML VIAL ONE (22:28)
[2018-12-06 22:37] LABS: BASOPHILS # (AUTO) 0.1 K/uL (0.0-8.0); BASOPHILS % (AUTO) 0.5 % (0.0-2.0); EOSINOPHILS # (AUTO) 0.1 K/uL (0.0-0.7); EOSINOPHILS % (AUTO) 0.7 % (0.0-7.0); HEMATOCRIT 42.8 % (31.2-41.9); HEMOGLOBIN 14.6 g/dL (10.9-14.3); LYMPHOCYTES # (AUTO) 2.6 K/uL (20.0-40.0); LYMPHOCYTES % (AUTO) 19.8 % (20.5-51.5); MEAN CORPUSCULAR HEMOGLOBIN 28.8 uug (24.7-32.8); MEAN CORPUSCULAR HGB CONC 34 g/dL (32.3-35.6); MEAN CORPUSCULAR VOLUME 84.1 fL (75.5-95.3); MONOCYTES # (AUTO) 1.1 K/uL (2.0-10.0); MONOCYTES % (AUTO) 8.3 % (0.0-11.0); NEUTROPHILS # (AUTO) 9.2 K/uL (1.8-8.9); NEUTROPHILS % (AUTO) 70.7 % (38.5-71.5); PLATELET COUNT (AUTO) 472 K/uL (179-408); RED BLOOD CELL COUNT(AUTO) 5.09 MIL/uL (3.63-4.92)
[2018-12-06 22:43] LABS: CARBON DIOXIDE 27 mmol/L (21-32); CHLORIDE 94 mmol/L (98-107); CREATININE 0.7 mg/dL (0.6-1.3); GLUCOSE 141 mg/dL (74-106); POTASSIUM 4.7 mmol/L (3.5-5.1); UREA NITROGEN, BLOOD 17 mg/dL (7-18)
[2018-12-06 22:49] LABS: ETHANOL < 3 MG/DL (0-0)
[2018-12-06 22:58] LABS: ALANINE AMINOTRANSFERASE 24 U/L (14-59); ALKALINE PHOSPHATASE 77 U/L (50-136); ASPARTATE AMINOTRANSFERASE 15 U/L (15-37); BILIRUBIN,DIRECT 0.1 mg/dL (0.0-0.2); BILIRUBIN,TOTAL 0.5 mg/dL (0.2-1.0); TOTAL PROTEIN, SERUM 7.6 g/dL (6.4-8.2)
[2018-12-06 23:43] VITALS: BP 144/78
[2018-12-07] MEDS ORDERED: ACETAMINOPHEN 325 MG TABLET PO PRN
[2018-12-07] MEDS ORDERED: ONDANSETRON 4 MG/2 ML VIAL IV PRN
[2018-12-07] MEDS ORDERED: ZOLPIDEM 5 MG TABLET PO PRN
[2018-12-07] MEDS ORDERED: Z GUARD REMEDY PASTE 57 GM TUBE TOP PRN
[2018-12-07] MEDS: SUCRALFATE 1 G TABLET PO SCH ×5 (00:14→20:07)
[2018-12-07 04:00] VITALS: BP 92/43
[2018-12-07] MEDS: PANTOPRAZOLE SODIUM 40 MG TABLET.DR PO SCH (06:18)
[2018-12-07 07:02] LABS: MAGNESIUM 1.8 mg/dL (1.8-2.4); PHOSPHOROUS 4.2 mg/dL (2.5-4.9)
[2018-12-07 08:09] LABS: BASOPHILS # (AUTO) 0.1 K/uL (0.0-8.0); BASOPHILS % (AUTO) 0.9 % (0.0-2.0); EOSINOPHILS # (AUTO) 0.1 K/uL (0.0-0.7); EOSINOPHILS % (AUTO) 1.1 % (0.0-7.0); LYMPHOCYTES # (AUTO) 4.1 K/uL (20.0-40.0); LYMPHOCYTES % (AUTO) 36.8 % (20.5-51.5); MEAN CORPUSCULAR HEMOGLOBIN 28.9 uug (24.7-32.8); MEAN CORPUSCULAR HGB CONC 34 g/dL (32.3-35.6); MEAN CORPUSCULAR VOLUME 85.9 fL (75.5-95.3); MONOCYTES # (AUTO) 0.9 K/uL (2.0-10.0); MONOCYTES % (AUTO) 7.9 % (0.0-11.0); NEUTROPHILS # (AUTO) 5.9 K/uL (1.8-8.9); NEUTROPHILS % (AUTO) 53.3 % (38.5-71.5); PLATELET COUNT (AUTO) 378 K/uL (179-408); RED BLOOD CELL COUNT(AUTO) 4.18 MIL/uL (3.63-4.92); WHITE BLOOD COUNT (AUTO) 11.1 K/uL (3.8-11.8)
[2018-12-07 08:13] LABS: HEMATOCRIT 35.9 % (31.2-41.9); HEMOGLOBIN 12.1 g/dL (10.9-14.3)
[2018-12-07] MEDS ORDERED: IV NS 1000 ML 1,000 ML IV ONE (08:45)
[2018-12-07] MEDS ORDERED: PROPRANOLOL HCL 40 MG TABLET PO SCH (09:00)
[2018-12-07 09:47] VITALS: BP 93/53
[2018-12-07 11:02] VITALS: BP 109/56
[2018-12-07] MEDS: SERTRALINE HCL 50 MG TABLET PO SCH (11:51)
[2018-12-07] MEDS: CARVEDILOL 6.25 MG TABLET PO SCH ×2 (11:51→17:34)
[2018-12-07] MEDS: ASPIRIN EC 81 MG TABLET.DR PO SCH (11:52)
[2018-12-07 14:44] LABS: *BILIRUBIN,URIN NEGATIVE (NEGATIVE); *BLOOD, URINE NEGATIVE (NEGATIVE); *CLARITY,URINE CLEAR (CLEAR); *COLOR,URINE YELLOW (YELLOW); *KETONES,URINE NEGATIVE (NEGATIVE); *UROBILINOGEN,URINE 0.2 E.U./dl (NORMAL); LEUKOCYTE ESTERASE ,URINE NEGATIVE (NEGATIVE); NITRITE, URINE NEGATIVE (NEGATIVE); UGLUCOSE NEGATIVE (NEGATIVE)
[2018-12-07 15:23] LABS: *AMPHETAMINE, URINE NEGATIVE (NEGATIVE); *BARBITURATE, URINE NEGATIVE (NEGATIVE); *CANNABINOID, URINE NEGATIVE (NEGATIVE); *COCCAINE, URINE NEGATIVE (NEGATIVE); *OPIATE, URINE POSITIVE (NEGATIVE); *PHENCYCLIDINE SCREEN,URINE NEGATIVE (NEGATIVE)
[2018-12-07 17:20] VITALS: BP 98/52
[2018-12-07 20:14] VITALS: BP 117/78
[2018-12-07] MEDS ORDERED: MIRTAZAPINE 15 MG TABLET PO SCH (21:00)
[2018-12-08 00:26] VITALS: BP 90/49
[2018-12-08 05:09] VITALS: BP 114/65
[2018-12-08] MEDS: PANTOPRAZOLE SODIUM 40 MG TABLET.DR PO SCH (06:29)
[2018-12-08] MEDS: SUCRALFATE 1 G TABLET PO SCH ×3 (06:30→16:26)
[2018-12-08 06:34] LABS: BASOPHILS % (AUTO) 0.5 % (0.0-2.0); EOSINOPHILS # (AUTO) 0.1 K/uL (0.0-0.7); EOSINOPHILS % (AUTO) 1.5 % (0.0-7.0); HEMATOCRIT 34.5 % (31.2-41.9); HEMOGLOBIN 11.6 g/dL (10.9-14.3); LYMPHOCYTES # (AUTO) 2.4 K/uL (20.0-40.0); LYMPHOCYTES % (AUTO) 28.1 % (20.5-51.5); MEAN CORPUSCULAR HEMOGLOBIN 29.1 uug (24.7-32.8); MEAN CORPUSCULAR HGB CONC 34 g/dL (32.3-35.6); MEAN CORPUSCULAR VOLUME 86.5 fL (75.5-95.3); MONOCYTES # (AUTO) 0.7 K/uL (2.0-10.0); MONOCYTES % (AUTO) 8.5 % (0.0-11.0); NEUTROPHILS # (AUTO) 5.3 K/uL (1.8-8.9); NEUTROPHILS % (AUTO) 61.4 % (38.5-71.5); PLATELET COUNT (AUTO) 312 K/uL (179-408); RED BLOOD CELL COUNT(AUTO) 3.99 MIL/uL (3.63-4.92); WHITE BLOOD COUNT (AUTO) 8.7 K/uL (3.8-11.8)
[2018-12-08 06:48] LABS: CREATININE 1.1 mg/dL (0.6-1.3); MAGNESIUM 1.8 mg/dL (1.8-2.4); POTASSIUM 4.4 mmol/L (3.5-5.1)
[2018-12-08] MEDS: ASPIRIN EC 81 MG TABLET.DR PO SCH (08:33)
[2018-12-08] MEDS: CARVEDILOL 6.25 MG TABLET PO SCH ×2 (08:33→17:34)
[2018-12-08] MEDS: SERTRALINE HCL 50 MG TABLET PO SCH (08:33)
[2018-12-08 11:11] VITALS: BP 96/59
[2018-12-08 15:38] VITALS: BP 113/79
[2018-12-08 17:34] VITALS: BP 108/77
== END 2018-12-08 18:05 | disposition home or self-care (01) | DRG 206 ==
LOC: ER 21:33 → TELE3 23:23
PROVIDERS: ADMIT Nurse Practitioner Acute Care; ATTEND Nurse Practitioner Acute Care
PROC: 05H933Z Insertion of Infusion Device into Right Brachial Vein, Percutaneous Approach (ICD-10-PCS; principal; 2018-12-07)
PROC: B2211ZZ Computerized Tomography (CT Scan) of Multiple Coronary Arteries using Low Osmolar Contrast (ICD-10-PCS; 2018-12-07)
DX: M94.0 Chondrocostal junction syndrome [Tietze] (principal); E87.1 Hypo-osmolality and hyponatremia; F41.0 Panic disorder [episodic paroxysmal anxiety]; E83.51 Hypocalcemia; D72.829 Elevated white blood cell count, unspecified; I10 Essential (primary) hypertension; Z79.899 Other long term (current) drug therapy; M21.371 Foot drop, right foot; M21.372 Foot drop, left foot; F32.9 Major depressive disorder, single episode, unspecified
CPT/HCPCS: 36415; 70030-TC; 71045; 80307; 83735; 84100; 84443; 85025; 87086; 93005; 93307; A4663; G0378; G0480; J0780; J1200; J2270; J7030

== ENCOUNTER 2019-02-17 09:28 | Emergency (ER) | payer MEDICARE, OTHER ==
[~2019-02-17] VITALS: Ht 157.5 cm; Wt 63.0 kg
[~2019-02-17 09:28] MED LIST changes: -BUSP5TAB3 PO; -LORA0.5T PO; -METO-295 PO; -OLAN10TA3 PO; +PROP60TA18 PO
--- NOTE | 2019-02-17 09:43 | NUR ---
PT WALKED INTO ER WITH DAUGHTER CO N/V AND ABDOMINAL PAIN. PT REQUESTING FOR THE PAIN MED THAT WAS GIVEN TO HER ON PREVIOUS ER VISITS, SO SHE CANNOT FEEL ANYTHING NOW. NOTIFIED.
[2019-02-17] MEDS ORDERED: IV NORMAL SALINE 1000 ML BAG IV ONE (10:15)
[2019-02-17] MEDS ORDERED: diphenhydrAMINE 50 MG/1 ML VIAL IV ONE (10:15)
[2019-02-17] MEDS ORDERED: PROCHLORPERAZINE EDISYLATE 10 MG/2 ML VIAL IV ONE (10:15)
[2019-02-17 10:47] LABS: BASOPHILS % (AUTO) 0.2 % (0.0-2.0); EOSINOPHILS # (AUTO) 0.1 K/uL (0.0-0.7); EOSINOPHILS % (AUTO) 0.6 % (0.0-7.0); HEMATOCRIT 41.2 % (31.2-41.9); HEMOGLOBIN 13.6 g/dL (10.9-14.3); LYMPHOCYTES # (AUTO) 1.6 K/uL (20.0-40.0); LYMPHOCYTES % (AUTO) 12.3 % (20.5-51.5); MEAN CORPUSCULAR HGB CONC 33 g/dL (32.3-35.6); MEAN CORPUSCULAR VOLUME 88.1 fL (75.5-95.3); MONOCYTES # (AUTO) 0.3 K/uL (2.0-10.0); MONOCYTES % (AUTO) 2.4 % (0.0-11.0); NEUTROPHILS % (AUTO) 84.5 % (38.5-71.5); PLATELET COUNT (AUTO) 269 K/uL (179-408); RED BLOOD CELL COUNT(AUTO) 4.68 MIL/uL (3.63-4.92)
[2019-02-17] MEDS ORDERED: diphenhydrAMINE 50 MG/1 ML VIAL ONE (10:50)
[2019-02-17] MEDS ORDERED: PROCHLORPERAZINE EDISYLATE 10 MG/2 ML VIAL ONE (10:51)
--- NOTE | 2019-02-17 10:57 | NUR ---
tried multiple time to heplock the pt unsuccessfull. asked another rn to try, also non-successfull. notified. meds changed to IM and ct without contrast. daughter at bedside.
[2019-02-17] MEDS ORDERED: PROCHLORPERAZINE EDISYLATE 10 MG/2 ML VIAL IM ONE (11:00)
[2019-02-17] MEDS ORDERED: diphenhydrAMINE 50 MG/1 ML VIAL IM ONE (11:00)
[2019-02-17 11:17] LABS: ALANINE AMINOTRANSFERASE 22 U/L (14-59); ALKALINE PHOSPHATASE 87 U/L (50-136); ASPARTATE AMINOTRANSFERASE 18 U/L (15-37); BILIRUBIN,DIRECT 0.1 mg/dL (0.0-0.2); BILIRUBIN,TOTAL 0.4 mg/dL (0.2-1.0); CARBON DIOXIDE 24 mmol/L (21-32); CHLORIDE 104 mmol/L (98-107); CREATININE 0.7 mg/dL (0.6-1.3); GLUCOSE 182 mg/dL (74-106); LIPASE 101 U/L (73-393); POTASSIUM 5.2 mmol/L (3.5-5.1); TOTAL PROTEIN, SERUM 7.7 g/dL (6.4-8.2); UREA NITROGEN, BLOOD 12 mg/dL (7-18)
--- NOTE | 2019-02-17 12:00 | NUR ---
called pt daughter per pt request to to take the pt home.
[2019-02-17] MEDS ORDERED: LORAZEPAM 2 MG/1 ML VIAL IM ONE (12:45)
[2019-02-17] MEDS ORDERED: LORAZEPAM 1 MG TABLET ONE (12:49)
[2019-02-17] MEDS ORDERED: LORAZEPAM 2 MG/1 ML VIAL ONE (12:51)
--- NOTE | 2019-02-17 12:53 | NUR ---
Patient discharged to home in stable conditon. Written and verbal after care instructions given. Patient verbalizes understanding of instructions.pt walks in steady gait. pt accompanied by daughter.
[2019-02-17 12:54] VITALS: BP 141/88
== END 2019-02-17 12:55 | disposition home or self-care (01) ==
LOC: ER 09:28
DX: R11.2 Nausea with vomiting, unspecified (principal); F41.9 Anxiety disorder, unspecified; F41.0 Panic disorder [episodic paroxysmal anxiety]; F32.9 Major depressive disorder, single episode, unspecified; Z88.8 Allergy status to other drugs, medicaments and biological substances; Z79.899 Other long term (current) drug therapy
CPT/HCPCS: 36415; 71045; 74176; 80048; 80076; 82140; 83690; 84484; 85025; 85730; 93005; 96372 ×3; 99284; J0780; J1200; J2060; 70030-TC; A4663; J7030

== ENCOUNTER 2019-07-27 12:18 | Emergency (ER) | payer MEDICARE, OTHER ==
[~2019-07-27] VITALS: Ht 160 cm; Wt 61.2 kg
[2019-07-27] MEDS ORDERED: LORAZEPAM 2 MG/1 ML VIAL ONE (12:50)
--- NOTE | 2019-07-27 12:54 | NUR ---
patient was seen by MD. Patient is awake and alert. Denies headache. Medication given as ordered.
[2019-07-27] MEDS ORDERED: LORAZEPAM 2 MG/1 ML VIAL IM ONE (13:00)
--- NOTE | 2019-07-27 13:02 | NUR ---
DC, RX (INCLUDING PRECAUTIONS AND WARNINGS) AND FOLLOW UP INSTRUCTIONS GIVEN AND EXPLAINED TO PATIENT AND DAUGHTER WHO STATE THEY UNDERSTAND ALL INSTRUCTIONS.
[2019-07-29] MEDS ORDERED: SERT50TA PO (13:01)
== END 2019-07-27 13:07 | disposition home or self-care (01) ==
LOC: ER 12:18
DX: F41.9 Anxiety disorder, unspecified (principal); R11.0 Nausea; Z88.8 Allergy status to other drugs, medicaments and biological substances; Z79.899 Other long term (current) drug therapy
CPT/HCPCS: 96372; 99283; J2060; A4663

== ENCOUNTER 2019-07-29 12:48 | Emergency (ER) | payer MEDICARE, OTHER ==
[~2019-07-29] VITALS: Ht 160 cm; Wt 61.2 kg
--- NOTE | 2019-07-29 13:20 | NUR ---
Admit a 63 yo female accompanied by her daughter with a C/O bloody urine.
[2019-07-29 13:31] LABS: *BILIRUBIN,URIN NEGATIVE (NEGATIVE); *COLOR,URINE YELLOW (YELLOW); *KETONES,URINE NEGATIVE (NEGATIVE); *UROBILINOGEN,URINE 0.2 E.U./dl (NORMAL); LEUKOCYTE ESTERASE ,URINE TRACE (NEGATIVE); NITRITE, URINE NEGATIVE (NEGATIVE); UGLUCOSE NEGATIVE (NEGATIVE)
[2019-07-29 13:32] LABS: *BLOOD, URINE TRACE (NEGATIVE)
[2019-07-29 13:38] LABS: *CLARITY,URINE HAZY (CLEAR)
[2019-07-29 13:41] LABS: BACTERIA,URINE MODERATE /HPF (NONE SEEN); SQUAMOUS EPITHELIAL CELL,UR MANY /HPF (NONE SEEN); WBC,URINE 50-80 /HPF (0-3)
[2019-07-29 13:42] LABS: MUCUS,URINE FEW /LPF (0-FEW)
[2019-07-29] MEDS ORDERED: CEphaleXIN 500 MG CAPSULE ONE (13:58)
[2019-07-29] MEDS ORDERED: CEphaleXIN 500 MG CAPSULE PO ONE (14:00)
[2019-07-29] MEDS ORDERED: LEVOFLOXACIN 750 MG/D5W 150 ML PIGGYBACK IV ONE (14:15)
[2019-07-29] MEDS ORDERED: IV NORMAL SALINE 1000 ML BAG IV ONE ×2 (14:15)
--- NOTE | 2019-07-29 14:30 | NUR ---
SEEN AND EXAMINED BY DR HENRIQUEZ WITH NEW ORDERS.
--- NOTE | 2019-07-29 14:35 | NUR ---
TO CT VIA [facility] FOR CT ABDOMEN AND PELVIS.
[2019-07-29 14:47] LABS: CREATININE 0.8 mg/dL (0.6-1.3); POTASSIUM 4.3 mmol/L (3.5-5.1)
--- NOTE | 2019-07-29 14:50 | NUR ---
BACK FROM CT. EKG DONE AT THE BEDSIDE.
[2019-07-29 14:52] LABS: BILIRUBIN,DIRECT 0.1 mg/dL (0.0-0.2); BILIRUBIN,TOTAL 0.4 mg/dL (0.2-1.0); TOTAL PROTEIN, SERUM 9.1 g/dL (6.4-8.2)
--- NOTE | 2019-07-29 15:00 | NUR ---
STARTED IV LINE ON THE LEFT WRIST G22. IVF NS 1 LITER STARTED INFUSING. LEVAQUIN 750MG IVPB INFUSING.
[2019-07-29 15:10] LABS: BASOPHILS % (AUTO) 0.4 % (0.0-2.0); EOSINOPHILS % (AUTO) 0.2 % (0.0-7.0); HEMATOCRIT 47.3 % (31.2-41.9); HEMOGLOBIN 15.8 g/dL (10.9-14.3); LYMPHOCYTES # (AUTO) 2.8 K/uL (20.0-40.0); LYMPHOCYTES % (AUTO) 20.4 % (20.5-51.5); MEAN CORPUSCULAR HEMOGLOBIN 28.5 uug (24.7-32.8); MEAN CORPUSCULAR HGB CONC 33 g/dL (32.3-35.6); MEAN CORPUSCULAR VOLUME 85.6 fL (75.5-95.3); MONOCYTES # (AUTO) 1.4 K/uL (2.0-10.0); NEUTROPHILS # (AUTO) 9.4 K/uL (1.8-8.9); PLATELET COUNT (AUTO) 346 K/uL (179-408); RED BLOOD CELL COUNT(AUTO) 5.52 MIL/uL (3.63-4.92); WHITE BLOOD COUNT (AUTO) 13.7 K/uL (3.8-11.8)
[2019-07-29] MEDS ORDERED: LEVOFLOXACIN 750MG/D5W 150 ML IV ONE (15:39)
--- NOTE | 2019-07-29 16:00 | NUR ---
2ND LITER OF NS STARTED ORDERED. DR HENRIQUEZ SPOKEN WITH PT AND EXPLAINED THE RESULT OF THE CT SCAN AND LAB TEST RESULT.
--- NOTE | 2019-07-29 18:00 | NUR ---
2ND IVF IS FINISHED. AWAITING FOR THE DAUGHTER TO PICK HER UP.
--- NOTE | 2019-07-29 18:25 | NUR ---
DISCHARGE INSTRUCTIONS AND PRESCRIPTIONS GIVEN TO THE DAUGHTER WITH GOOD UNDERSTANDING. DISCHARGED PT, PREFERRED TO AMBULATE WITH DAUGHTER. CONDITION IS STABLE.
[2019-07-29 18:44] VITALS: BP 177/92
== END 2019-07-29 18:25 | disposition home or self-care (01) ==
LOC: ER 12:48
DX: N12 Tubulo-interstitial nephritis, not specified as acute or chronic (principal); F41.9 Anxiety disorder, unspecified; Z88.8 Allergy status to other drugs, medicaments and biological substances; Z79.899 Other long term (current) drug therapy
CPT/HCPCS: 36415; 74176; 80048; 80076; 81000; 81001; 84443; 85025; 93005; 96365; 99285; J1956; A4663; J7030

== ENCOUNTER 2019-12-05 08:50 | Emergency (ER) | payer MEDICARE, OTHER ==
[~2019-12-05] VITALS: Ht 152.4 cm; Wt 59.9 kg
[~2019-12-05 08:50] MED LIST changes: -MIRT15TA PO; -PROP60TA18 PO; -SERT25TA PO; +SERT50TA PO
--- NOTE | 2019-12-05 08:50 | NUR ---
Patient is AOx4, moaning softly, anxious, c/o nausea, vomiting, diarrhea episodes with diffuse abdominal pains since last night, patient denies fever, denies chest pains, skin is warm & dry, seen ambulating to room 5,+steady gait, brought by her brother from private home.
--- NOTE | 2019-12-05 08:56 | NUR ---
+mild ataxia noted, patient's brother said that this not new. "She has walking problem for a long time." per patient's brother, is aware.
[2019-12-05] MEDS ORDERED: HYDROMORPHONE 1 MG/1 ML DISP.SYRIN ONE (09:13)
[2019-12-05] MEDS ORDERED: LORAZEPAM 2 MG/1 ML VIAL ONE (09:13)
[2019-12-05] MEDS ORDERED: HYDROMORPHONE 1 MG/1 ML DISP.SYRIN IV ONE (09:15)
[2019-12-05] MEDS ORDERED: IV NORMAL SALINE 1000 ML BAG IV ONE (09:15)
[2019-12-05] MEDS ORDERED: LORAZEPAM 2 MG/1 ML VIAL IV ONE (09:15)
[2019-12-05 09:40] LABS: BASOPHILS # (AUTO) 0.1 K/uL (0.0-8.0); BASOPHILS % (AUTO) 0.5 % (0.0-2.0); EOSINOPHILS % (AUTO) 0.1 % (0.0-7.0); HEMATOCRIT 40.7 % (31.2-41.9); HEMOGLOBIN 13.6 g/dL (10.9-14.3); LYMPHOCYTES # (AUTO) 0.9 K/uL (20.0-40.0); MEAN CORPUSCULAR HGB CONC 34 g/dL (32.3-35.6); MEAN CORPUSCULAR VOLUME 86.5 fL (75.5-95.3); MONOCYTES # (AUTO) 0.3 K/uL (2.0-10.0); NEUTROPHILS # (AUTO) 8.9 K/uL (1.8-8.9); NEUTROPHILS % (AUTO) 87.4 % (38.5-71.5); PLATELET COUNT (AUTO) 242 K/uL (179-408); WHITE BLOOD COUNT (AUTO) 10.2 K/uL (3.8-11.8)
[2019-12-05 09:52] LABS: CREATININE 0.9 mg/dL (0.6-1.3)
[2019-12-05 09:57] LABS: BILIRUBIN,DIRECT 0.1 mg/dL (0.0-0.2); BILIRUBIN,TOTAL 0.3 mg/dL (0.2-1.0)
[2019-12-05 10:09] LABS: *BILIRUBIN,URIN NEGATIVE (NEGATIVE); *BLOOD, URINE NEGATIVE (NEGATIVE); *CLARITY,URINE CLEAR (CLEAR); *COLOR,URINE YELLOW (YELLOW); *KETONES,URINE 1+ (NEGATIVE); *UROBILINOGEN,URINE 0.2 E.U./dl (NORMAL); LEUKOCYTE ESTERASE ,URINE NEGATIVE (NEGATIVE); NITRITE, URINE NEGATIVE (NEGATIVE); PH,URINE 5.5 (5.0-8.0); UGLUCOSE NEGATIVE (NEGATIVE)
--- NOTE | 2019-12-05 10:11 | NUR ---
Patient is resting comfortably in bed with eyes closed. PATIENT IS PAIN FREE AT THIS TIME, pending results and disposition
[2019-12-05 10:18] LABS: BACTERIA,URINE FEW /HPF (NONE SEEN); RBC,URINE 0-3 /HPF (0-3); SQUAMOUS EPITHELIAL CELL,UR MODERATE /HPF (NONE SEEN); WBC,URINE 0-3 /HPF (0-3)
--- NOTE | 2019-12-05 10:49 | NUR ---
Patient is for discharged to home. Written and verbal after care instructions given to patient and patient's brother Jovita. Patient & family verbalized understanding and compliance of instructions. Stressed follow up with her primary doctor, psychiatrist & GI doctor or return to ER for worsening s/s.
--- NOTE | 2019-12-05 11:17 | NUR ---
Patient tolerated crackers & juice. IV removed. Catheter intact and site benign. Pressure and 4x4 gauze applied to site. No bleeding noted. Patient refused wheelchair and wanted to walk to her car. I assisted patient to her car with her brother as the cdl truck driver.
== END 2019-12-05 11:19 | disposition home or self-care (01) ==
LOC: ER 08:50
DX: K29.70 Gastritis, unspecified, without bleeding (principal); I44.7 Left bundle-branch block, unspecified; M21.372 Foot drop, left foot; M21.371 Foot drop, right foot; F41.9 Anxiety disorder, unspecified; Z79.899 Other long term (current) drug therapy
CPT/HCPCS: 36415; 51701; 80048; 80076; 81001; 83690; 84484; 85025; 85730; 93005; 96361; 96374; 96375; 99285; J1170; J2060; 70030-TC; A4663; J7030

== ENCOUNTER 2020-07-17 06:16 | Emergency (ER) | payer MEDICARE, OTHER ==
[~2020-07-17] VITALS: Ht 152.4 cm; Wt 63.5 kg
--- NOTE | 2020-07-17 06:40 | NUR ---
MD Martinez in room to do MSE.
[2020-07-17] MEDS ORDERED: LORA-259 PO (06:43)
[2020-07-17] MEDS ORDERED: LORAZEPAM 2 MG/1 ML VIAL IM ONE (06:45)
[2020-07-17] MEDS ORDERED: LORAZEPAM 2 MG/1 ML VIAL ONE (06:50)
--- NOTE | 2020-07-17 07:00 | NUR ---
Patient SBP increased to 180-190 range. MD Martinez notified. Orders given to wait for Ativan to settle in patient.
--- NOTE | 2020-07-17 07:16 | NUR ---
Patient is resting comfortably on bed with eyes closed, for discharge when SBP is lower per Dr. Martinez.
--- NOTE | 2020-07-17 08:24 | NUR ---
Patient discharged to home in stable condition with slow steady gait. Written and verbal after care instructions given to patient. Patient verbalized understanding & compliance of instructions. Stressed follow up with primary doctor and her psychiatrist or return to ER for worsening s/s.
== END 2020-07-17 08:26 | disposition home or self-care (01) ==
LOC: ER 06:24
DX: F41.9 Anxiety disorder, unspecified (principal); Z87.442 Personal history of urinary calculi; Z90.5 Acquired absence of kidney; M21.372 Foot drop, left foot; M21.371 Foot drop, right foot; Z88.8 Allergy status to other drugs, medicaments and biological substances; Z79.899 Other long term (current) drug therapy
CPT/HCPCS: 96372; 99283; J2060; A4663

== ENCOUNTER 2020-07-20 04:03 | Emergency (ER) | payer MEDICARE, OTHER ==
[~2020-07-20] VITALS: Ht 152.4 cm; Wt 59.9 kg
[~2020-07-20 04:03] MED LIST changes: +LORA-259 PO
--- NOTE | 2020-07-20 04:19 | NUR ---
MD GAMINO in room to do MSE.
--- NOTE | 2020-07-20 04:20 | NUR ---
Omaira basurto in ED - 07/20/20 at 0458 by BFRANAMERICAVI pt c/o nausea; MD GAMINO notified. Pending orders.
[2020-07-20] MEDS ORDERED: LORAZEPAM 2 MG/1 ML VIAL ONE (04:29)
[2020-07-20] MEDS ORDERED: LORAZEPAM 2 MG/1 ML VIAL IM ONE (04:30)
--- NOTE | 2020-07-20 04:40 | NUR ---
pt c/o of nausea, MD GAMINO notified.
[2020-07-20] MEDS ORDERED: HALOPERIDOL LACTATE 5 MG/1 ML VIAL IM ONE (04:45)
[2020-07-20] MEDS ORDERED: HALOPERIDOL LACTATE 5 MG/1 ML VIAL ONE (04:52)
--- NOTE | 2020-07-20 05:11 | NUR ---
Patient is sleeping in room, eyes closed. No acute distress noted at this time.
--- NOTE | 2020-07-20 06:08 | NUR ---
Patient woke up and requested phone to call daughter ([phone]) to pick her up.
[2020-07-20 06:18] VITALS: BP 152/95
--- NOTE | 2020-07-20 06:18 | NUR ---
Patient discharged to home in stable condition. Written and verbal after care instructions given. Patient verbalizes understanding of instructions. Stressed follow up or return to ER for worsening s/s. Patient ambulated leaving with daughter, received Rx, took all belongings, advised to not drive.
== END 2020-07-20 06:18 | disposition home or self-care (01) ==
LOC: ER 04:07
DX: F41.0 Panic disorder [episodic paroxysmal anxiety] (principal)
CPT/HCPCS: 96372 ×2; 99284; J1630; J2060; A4663

== ENCOUNTER 2020-07-21 23:33 | Emergency (ER) | payer MEDICARE, OTHER ==
[~2020-07-21] VITALS: Ht 162.6 cm; Wt 72.6 kg
--- NOTE | 2020-07-22 | NUR ---
Dr Burr at bedside for MSE
[2020-07-22] MEDS ORDERED: LORAZEPAM 2 MG/1 ML VIAL ONE (00:07)
[2020-07-22] MEDS ORDERED: BENAZEPRIL HCL 10 MG TABLET ONE (00:12)
[2020-07-22] MEDS ORDERED: BENAZEPRIL HCL 10 MG TABLET PO ONE (00:15)
[2020-07-22] MEDS ORDERED: LORAZEPAM 2 MG/1 ML VIAL IM ONE (00:15)
--- NOTE | 2020-07-22 00:39 | NUR ---
Patient has been cleared for DC by EDISON. Written and verbal after care instructions given. Patient and dtr verbalizes understanding of instructions. Stressed follow up or return to ER for worsening s/s. Pt discharged to home in stable condition, assisted patient via wheelchair to private car. Pt will be driven home by dtr.
[2020-07-22 00:40] VITALS: BP 155/75
== END 2020-07-22 00:41 | disposition home or self-care (01) ==
LOC: ER 23:37
DX: F41.0 Panic disorder [episodic paroxysmal anxiety] (principal); I10 Essential (primary) hypertension; Z87.442 Personal history of urinary calculi
CPT/HCPCS: 96372; 99283; J2060; A4663

== ENCOUNTER 2020-07-26 02:20 | Emergency (ER) | payer MEDICARE, OTHER ==
[~2020-07-26] VITALS: Ht 157.5 cm; Wt 59.0 kg
[2020-07-26] MEDS ORDERED: LORAZEPAM 2 MG/1 ML VIAL ONE (02:44)
[2020-07-26] MEDS ORDERED: LORAZEPAM 2 MG/1 ML VIAL IM ONE (02:45)
[2020-07-26] MEDS ORDERED: MIRT15TA7 PO (02:46)
[2020-07-26] MEDS ORDERED: SERT25TA PO (02:46)
[2020-07-26] MEDS ORDERED: HYDR-3641 PO (02:46)
[2020-07-26 03:31] LABS: CARBON DIOXIDE 22 mmol/L (21-32); CHLORIDE 101 mmol/L (98-107); CREATININE 0.8 mg/dL (0.6-1.3); GLUCOSE 166 mg/dL (74-106); POTASSIUM 4.1 mmol/L (3.5-5.1); UREA NITROGEN, BLOOD 24 mg/dL (7-18)
[2020-07-26 03:32] LABS: ETHANOL < 3 MG/DL (0-0)
[2020-07-26 03:37] LABS: ALANINE AMINOTRANSFERASE 19 U/L (14-59); ALKALINE PHOSPHATASE 87 U/L (50-136); ASPARTATE AMINOTRANSFERASE 13 U/L (15-37); BILIRUBIN,DIRECT 0.1 mg/dL (0.0-0.2); BILIRUBIN,TOTAL 0.4 mg/dL (0.2-1.0); TOTAL PROTEIN, SERUM 8.1 g/dL (6.4-8.2)
[2020-07-26 03:44] LABS: ACETAMINOPHEN < 2.0 ug/mL (10-30)
[2020-07-26 03:50] LABS: BASOPHILS # (AUTO) 0.1 K/uL (0.0-8.0); BASOPHILS % (AUTO) 0.7 % (0.0-2.0); EOSINOPHILS % (AUTO) 0.3 % (0.0-7.0); HEMATOCRIT 43.9 % (31.2-41.9); HEMOGLOBIN 14.6 g/dL (10.9-14.3); LYMPHOCYTES # (AUTO) 1.9 K/uL (20.0-40.0); LYMPHOCYTES % (AUTO) 15.9 % (20.5-51.5); MEAN CORPUSCULAR HEMOGLOBIN 29.1 uug (24.7-32.8); MEAN CORPUSCULAR HGB CONC 33 g/dL (32.3-35.6); MEAN CORPUSCULAR VOLUME 87.8 fL (75.5-95.3); MONOCYTES # (AUTO) 0.6 K/uL (2.0-10.0); MONOCYTES % (AUTO) 4.5 % (0.0-11.0); NEUTROPHILS # (AUTO) 9.6 K/uL (1.8-8.9); NEUTROPHILS % (AUTO) 78.6 % (38.5-71.5); PLATELET COUNT (AUTO) 321 K/uL (179-408); WHITE BLOOD COUNT (AUTO) 12.2 K/uL (3.8-11.8)
--- NOTE | 2020-07-26 03:55 | NUR ---
PATIENT WAS MEDICALLY CLEARED BY DR ZIEGLER.
--- NOTE | 2020-07-26 04:00 | NUR ---
KAILEE WAS CALLED LEFT MESSAGE WAITING FOR CALL BACK.
--- NOTE | 2020-07-26 05:00 | NUR ---
KAILEE WAS CALLED LEFT MESSAGE WAITING FOR CALL BACK.
[2020-07-26] MEDS ORDERED: BENAZEPRIL HCL 10 MG TABLET ONE (05:42)
[2020-07-26] MEDS ORDERED: BENAZEPRIL HCL 10 MG TABLET PO ONE (05:45)
--- NOTE | 2020-07-26 06:02 | NUR ---
KAILEE FROM [facility] CALLED BACK WILL COME EVALUATE PATIENT.
[2020-07-26 06:44] LABS: *BILIRUBIN,URIN 1+ (NEGATIVE); *BLOOD, URINE TRACE (NEGATIVE); *COLOR,URINE YELLOW (YELLOW); *KETONES,URINE TRACE (NEGATIVE); *UROBILINOGEN,URINE 0.2 E.U./dl (NORMAL); LEUKOCYTE ESTERASE ,URINE 1+ (NEGATIVE); NITRITE, URINE NEGATIVE (NEGATIVE); PH,URINE 5.5 (5.0-8.0); UGLUCOSE NEGATIVE (NEGATIVE)
[2020-07-26 06:55] LABS: *AMPHETAMINE, URINE NEGATIVE (NEGATIVE); *CANNABINOID, URINE POSITIVE (NEGATIVE); *COCCAINE, URINE NEGATIVE (NEGATIVE); *OPIATE, URINE NEGATIVE (NEGATIVE); *PHENCYCLIDINE SCREEN,URINE NEGATIVE (NEGATIVE)
[2020-07-26 06:56] LABS: *CLARITY,URINE SLIGHTLY CLOUDY (CLEAR)
[2020-07-26 06:57] LABS: BACTERIA,URINE MODERATE /HPF (NONE SEEN); CALCIUM OXALATE CRYSTALS,UR FEW /HPF (NONE SEEN); SQUAMOUS EPITHELIAL CELL,UR MODERATE /HPF (NONE SEEN)
--- NOTE | 2020-07-26 07:20 | NUR ---
Carlitos at bedside for assessment
--- NOTE | 2020-07-26 07:30 | NUR ---
Received patient in shift report
[2020-07-26] MEDS ORDERED: ALPR1TAB7 PO (07:54)
--- NOTE | 2020-07-26 08:13 | NUR ---
Patient discharged to home in stable condition. Assisted home by daughter, instructed not to drive while takin gprescribed medication, took all belongings, left ER via wheelchair. Written and verbal after care instructions given. NO signs of acute distress noted. Patient verbalizes understanding of instructions. Stressed follow up or return to ER for worsening s/s.
[2020-07-26 08:16] VITALS: BP 171/100
== END 2020-07-26 08:00 | disposition home or self-care (01) ==
LOC: ER 02:21
DX: F41.0 Panic disorder [episodic paroxysmal anxiety] (principal); I10 Essential (primary) hypertension; F32.9 Major depressive disorder, single episode, unspecified; I44.7 Left bundle-branch block, unspecified; Z82.49 Family history of ischemic heart disease and other diseases of the circulatory system; D72.829 Elevated white blood cell count, unspecified
CPT/HCPCS: 36415; 80048; 80076; 80299; 80307; 80320; 81001; 84484; 85025; 87086; 87426; 93005; 96372; 99284; J2060; 70030-TC; A4663; G0480

== ENCOUNTER 2020-07-30 04:43 | Emergency (ER) | payer MEDICARE, OTHER ==
[~2020-07-30] VITALS: Ht 157.5 cm; Wt 59.0 kg
[~2020-07-30 04:43] MED LIST changes: +ALPR1TAB7 PO; +HYDR-3641 PO; +MIRT15TA7 PO; +SERT25TA PO; -SERT50TA PO
--- NOTE | 2020-07-30 04:50 | NUR ---
Patient brought in by RA from home with complaints of severe Abdominal Pain. Patient is groaning and screaming in agony in the hallway and states that her pain is "100/10" and that she wants "Morphine". I am unable to get a detailed pain assessment done due to patients mental status. Patients ALEXANDR reports states that she has visited [facility] other times for Anxiety/Panic Attacks within the past 1 month. A detailed head to toe examination is not possible at this time due to patients status. No S3/S4 sounds heard -12 lead shows Sinus Rhythm. BP 123/85. Lung sounds clear - saturating 98% on RA.
--- NOTE | 2020-07-30 04:54 | NUR ---
at bedside for examination
[2020-07-30] MEDS ORDERED: MORPHINE SULFATE 4 MG/1 ML DISP.SYRIN IV ONE (05:00)
[2020-07-30] MEDS ORDERED: MORPHINE SULFATE 4 MG/1 ML DISP.SYRIN ONE (05:02)
[2020-07-30 05:12] LABS: BASOPHILS % (AUTO) 0.4 % (0.0-2.0); EOSINOPHILS % (AUTO) 0.2 % (0.0-7.0); HEMATOCRIT 48.8 % (31.2-41.9); HEMOGLOBIN 16.3 g/dL (10.9-14.3); LYMPHOCYTES # (AUTO) 1.6 K/uL (20.0-40.0); LYMPHOCYTES % (AUTO) 14.5 % (20.5-51.5); MEAN CORPUSCULAR HEMOGLOBIN 29.3 uug (24.7-32.8); MEAN CORPUSCULAR HGB CONC 33 g/dL (32.3-35.6); MEAN CORPUSCULAR VOLUME 87.8 fL (75.5-95.3); MONOCYTES # (AUTO) 0.3 K/uL (2.0-10.0); MONOCYTES % (AUTO) 2.9 % (0.0-11.0); NEUTROPHILS # (AUTO) 8.9 K/uL (1.8-8.9); PLATELET COUNT (AUTO) 355 K/uL (179-408); RED BLOOD CELL COUNT(AUTO) 5.56 MIL/uL (3.63-4.92); WHITE BLOOD COUNT (AUTO) 10.8 K/uL (3.8-11.8)
[2020-07-30 05:23] LABS: ALANINE AMINOTRANSFERASE 21 U/L (14-59); ALKALINE PHOSPHATASE 99 U/L (50-136); ASPARTATE AMINOTRANSFERASE 10 U/L (15-37); BILIRUBIN,DIRECT 0.1 mg/dL (0.0-0.2); BILIRUBIN,TOTAL 0.3 mg/dL (0.2-1.0); CHLORIDE 101 mmol/L (98-107); GLUCOSE 184 mg/dL (74-106); LIPASE 176 U/L (73-393); POTASSIUM 4.4 mmol/L (3.5-5.1); TOTAL PROTEIN, SERUM 9.1 g/dL (6.4-8.2); UREA NITROGEN, BLOOD 25 mg/dL (7-18)
[2020-07-30 05:35] LABS: CARBON DIOXIDE 26 mmol/L (21-32)
[2020-07-30] MEDS ORDERED: IOHEXOL 300MG/ML 100 ML INFUS..BTL IV ONE (06:00)
--- NOTE | 2020-07-30 06:40 | NUR ---
Patient down to CT at this time.
[2020-07-30] MEDS ORDERED: IOHEXOL 350 100 ML INFUS..BTL IV ONE (07:00)
--- NOTE | 2020-07-30 07:00 | NUR ---
Assumed care for patient at this time. AO x 3, verbally responsive in Gambian. Denies any pain or discomfort at this time. No NVD. Pending CT results.
--- NOTE | 2020-07-30 08:01 | NUR ---
Pt assisted to the bathroom at this time for a urine sample. Able to walk in steady gait, with stand by assistance from 1 nurse.
--- NOTE | 2020-07-30 08:30 | NUR ---
Pt down to CT.
[2020-07-30 08:37] LABS: *BILIRUBIN,URIN NEGATIVE (NEGATIVE); *BLOOD, URINE NEGATIVE (NEGATIVE); *CLARITY,URINE SLIGHTLY CLOUDY (CLEAR); *COLOR,URINE YELLOW (YELLOW); *KETONES,URINE NEGATIVE (NEGATIVE); *UROBILINOGEN,URINE 0.2 E.U./dl (NORMAL); LEUKOCYTE ESTERASE ,URINE 1+ (NEGATIVE); NITRITE, URINE NEGATIVE (NEGATIVE); UGLUCOSE NEGATIVE (NEGATIVE)
--- NOTE | 2020-07-30 08:50 | NUR ---
Repeated BP measurements and allowed patient to reposition and rest after ambulation and being down to CT, however multiple readings of elevated blood pressure. Notified
[2020-07-30] MEDS ORDERED: hydrALAZINE HCL 20 MG/1 ML VIAL IV ONE (09:00)
[2020-07-30] MEDS ORDERED: LABETALOL HCL 100 MG/20 ML VIAL IV ONE (09:00)
[2020-07-30] MEDS ORDERED: IV NORMAL SALINE 1000 ML BAG IV ONE (09:15)
--- NOTE | 2020-07-30 09:15 | NUR ---
Current BP: 161/98, HR: 89, significantly improved after Labetalol 4mg and Hydralazine 10 mg ordered by MD via IV PUSH. Pt is resting in bed with no signs of distress.
[2020-07-30] MEDS ORDERED: FAMO40TA7 PO (09:40)
[2020-07-30] MEDS ORDERED: OMEP20TA20 PO (09:40)
[2020-07-30] MEDS ORDERED: CEPH500C2 PO (09:43)
[2020-07-30 10:10] VITALS: BP 159/100
--- NOTE | 2020-07-30 10:11 | NUR ---
Patient has been cleared for DC by ER MD. Dtr present at time of discharge. Written and verbal after care instructions given. Patient and daughter, verbalizes understanding of instructions. Stressed follow up with PCP, ER MD had lengthy discussion with dtr re: placement, or return to ER for worsening s/s. IV removed from R AC and L Hand. Catheter intact and sites benign. Pressure and 4x4 gauze applied to site. No bleeding noted. Offered to provide wheelchair to help patient exit, but dtr insisted on standby assist to car. Pt able to ambulate with assistance to car, left in stable condition.
[2020-07-30 12:07] LABS: BACTERIA,URINE FEW /HPF (NONE SEEN); SQUAMOUS EPITHELIAL CELL,UR FEW /HPF (NONE SEEN)
== END 2020-07-30 10:11 | disposition home or self-care (01) ==
LOC: ER 04:45
DX: R10.33 Periumbilical pain (principal); F41.0 Panic disorder [episodic paroxysmal anxiety]; R94.31 Abnormal electrocardiogram [ECG] [EKG]; K44.9 Diaphragmatic hernia without obstruction or gangrene; K57.30 Diverticulosis of large intestine without perforation or abscess without bleeding; I70.8 Atherosclerosis of other arteries
CPT/HCPCS: 36415; 70030-TC; 83690; 85025; 87086; 93005; J2270; J7030; Q9967

== ENCOUNTER 2020-11-14 16:57 | Emergency (ER) | payer MEDICARE, OTHER ==
[~2020-11-14] VITALS: Ht 154.9 cm; Wt 59.0 kg
[~2020-11-14 16:57] MED LIST changes: +CEPH500C2 PO; +FAMO40TA7 PO; +MIRT-93 PO; -MIRT15TA7 PO; +OMEP20TA20 PO
[2020-11-14] MEDS ORDERED: PROCHLORPERAZINE EDISYLATE 10 MG/2 ML VIAL IM ONE (17:15)
[2020-11-14] MEDS ORDERED: LORAZEPAM 2 MG/1 ML VIAL IM ONE (17:15)
[2020-11-14] MEDS ORDERED: diphenhydrAMINE 50 MG/1 ML VIAL IV ONE (17:30)
[2020-11-14] MEDS ORDERED: LORAZEPAM 2 MG/1 ML VIAL IV ONE (17:30)
[2020-11-14] MEDS ORDERED: PROCHLORPERAZINE EDISYLATE 10 MG/2 ML VIAL IV ONE (17:30)
[2020-11-14] MEDS ORDERED: PROCHLORPERAZINE EDISYLATE 10 MG/2 ML VIAL ONE (17:47)
[2020-11-14] MEDS ORDERED: diphenhydrAMINE 50 MG/1 ML VIAL ONE (17:47)
[2020-11-14] MEDS ORDERED: LORAZEPAM 2 MG/1 ML VIAL ONE (17:49)
[2020-11-14 18:03] LABS: HEMATOCRIT 42.7 % (31.2-41.9); MEAN CORPUSCULAR HEMOGLOBIN 29.3 uug (24.7-32.8); MEAN CORPUSCULAR VOLUME 86.8 fL (75.5-95.3); PLATELET COUNT (AUTO) 320 K/uL (179-408)
--- NOTE | 2020-11-14 18:04 | NUR ---
Pt has ongoing anxiety issue, increased today. Pt c/o epigastric ABD pain, with back pain and left shoulder pain with nausea, pt did vomit x 1 while here. Pt denies CP, SOB, dizziness, no other complaints, no distress noted, but pt appears anxious.
[2020-11-14 18:10] LABS: CREATININE 0.6 mg/dL (0.6-1.3); POTASSIUM 3.9 mmol/L (3.5-5.1)
[2020-11-14 18:16] LABS: BILIRUBIN,DIRECT 0.1 mg/dL (0.0-0.2); BILIRUBIN,TOTAL 0.4 mg/dL (0.2-1.0); TOTAL PROTEIN, SERUM 8.4 g/dL (6.4-8.2)
--- NOTE | 2020-11-14 18:26 | NUR ---
EKG done and given to
--- NOTE | 2020-11-14 19:00 | NUR ---
Report recieved from Romeo AARON. Pt in [facility]. Asleep, arousable via tactile stimuli. NAD noted. Pending discharge once awake.
--- NOTE | 2020-11-14 20:51 | NUR ---
Per Dr. Thompson, pt stable for discharge. Pt awake, alert and verbally responsive. Pt able to ambulate from bed to chair. NAD noted. Pt's daughter at bedside to diamond picker pt. DC instructions given and reviewed with pt. Verbalized understanding. Left ER in stable condition. Addendum: 11/14/20 at 2051 by TAWANNA IV DC'd noted with tip intact.
[2020-11-14 20:52] VITALS: BP 112/63
== END 2020-11-14 20:53 | disposition home or self-care (01) ==
LOC: ER 17:02
DX: F41.0 Panic disorder [episodic paroxysmal anxiety] (principal); F32.9 Major depressive disorder, single episode, unspecified; R11.0 Nausea; I10 Essential (primary) hypertension; I44.7 Left bundle-branch block, unspecified
CPT/HCPCS: 36415; 71045; 80048; 80076; 83690; 84484; 85025; 93005; 96374; 96375; 99285; J0780; J1200; J2060; 70030-TC; A4663

== ENCOUNTER 2020-11-16 03:02 | Emergency (ER) | payer MEDICARE, OTHER ==
[~2020-11-16] VITALS: Ht 154.9 cm; Wt 59.0 kg
[2020-11-16] MEDS ORDERED: PROCHLORPERAZINE EDISYLATE 10 MG/2 ML VIAL IV ONE (03:15)
[2020-11-16] MEDS ORDERED: LORAZEPAM 2 MG/1 ML VIAL IV ONE (03:15)
--- NOTE | 2020-11-16 03:20 | NUR ---
MD Cui in room to do MSE.
[2020-11-16 03:56] LABS: HEMATOCRIT 38.2 % (31.2-41.9); MEAN CORPUSCULAR VOLUME 87.9 fL (75.5-95.3); PLATELET COUNT (AUTO) 311 K/uL (179-408)
[2020-11-16 03:58] LABS: CREATININE 0.6 mg/dL (0.6-1.3)
[2020-11-16 03:59] LABS: BILIRUBIN,DIRECT 0.1 mg/dL (0.0-0.2); BILIRUBIN,TOTAL 0.3 mg/dL (0.2-1.0); TOTAL PROTEIN, SERUM 7.7 g/dL (6.4-8.2)
[2020-11-16] MEDS ORDERED: PROCHLORPERAZINE EDISYLATE 10 MG/2 ML VIAL ONE (04:10)
--- NOTE | 2020-11-16 04:52 | NUR ---
Patient sleeping in room eyes closed. No acute distress noted.
--- NOTE | 2020-11-16 06:09 | NUR ---
Daughter called for patient pick-up.
--- NOTE | 2020-11-16 06:44 | NUR ---
Hands-off report given to Jasbir AARON.
--- NOTE | 2020-11-16 07:14 | NUR ---
DR HENRIQUEZ TALKED TO THE PT. PT HAS HYPERTENSION HISTORY. PT WAS MEDICATED ACCORDING TO ER MD ORDERS. NO S/S OF ADVERSE REACTION.
[2020-11-16] MEDS ORDERED: BENAZEPRIL HCL 10 MG TABLET PO ONE (07:15)
[2020-11-16] MEDS ORDERED: BENAZEPRIL HCL 10 MG TABLET ONE (07:28)
[2020-11-16] MEDS ORDERED: CLONIDINE HCL 0.1 MG TABLET ONE (08:11)
--- NOTE | 2020-11-16 08:12 | NUR ---
PT's SHADEER WAS CALLED. NEELAM IS 30 MINUTES.
[2020-11-16] MEDS ORDERED: CLONIDINE HCL 0.1 MG TABLET PO ONE (08:15)
[2020-11-16 08:46] VITALS: BP 146/92
--- NOTE | 2020-11-16 08:46 | NUR ---
PT WAS D/C'd TO HOME. D/C INSTRUCTIONS GIVEN TO THE PT AND TO HER DOUGHTER BY DR HENRIQUEZ.
== END 2020-11-16 08:47 | disposition home or self-care (01) ==
LOC: ER 03:08
DX: F41.9 Anxiety disorder, unspecified (principal); R11.2 Nausea with vomiting, unspecified; F32.9 Major depressive disorder, single episode, unspecified; I44.7 Left bundle-branch block, unspecified; R03.0 Elevated blood-pressure reading, without diagnosis of hypertension
CPT/HCPCS: 36415; 80048; 80076; 83690; 84484; 85025; 93005; 96374; 99284; J0780; 70030-TC; A4663

== ENCOUNTER 2020-11-23 19:20 | Emergency (ER) | payer MEDICARE, OTHER ==
[~2020-11-23] VITALS: Ht 154.9 cm; Wt 63.5 kg
--- NOTE | 2020-11-23 19:40 | NUR ---
MD Jessica in room to do MSE.
[2020-11-23 19:50] LABS: *BILIRUBIN,URIN 1+ (NEGATIVE); *BLOOD, URINE NEGATIVE (NEGATIVE); *COLOR,URINE YELLOW (YELLOW); *KETONES,URINE TRACE (NEGATIVE); *UROBILINOGEN,URINE 0.2 E.U./dl (NORMAL); LEUKOCYTE ESTERASE ,URINE NEGATIVE (NEGATIVE); NITRITE, URINE NEGATIVE (NEGATIVE); PH,URINE 5.5 (5.0-8.0); UGLUCOSE NEGATIVE (NEGATIVE)
[2020-11-23 19:59] LABS: *CLARITY,URINE SLIGHTLY HAZY (CLEAR); BACTERIA,URINE FEW /HPF (NONE SEEN); CALCIUM OXALATE CRYSTALS,UR FEW /HPF (NONE SEEN); RBC,URINE 0-3 /HPF (0-3); SQUAMOUS EPITHELIAL CELL,UR MODERATE /HPF (NONE SEEN)
--- NOTE | 2020-11-23 20:18 | NUR ---
Omaira basurto in [facility] - 11/23/20 at 2019 by MARTA MD Jessica in room to do MSE.
--- NOTE | 2020-11-23 20:18 | NUR ---
floor tech in room to draw blood from patient.
--- NOTE | 2020-11-23 20:19 | NUR ---
Radiology at [facility] to take patient to CT scan.
[2020-11-23] MEDS ORDERED: LORAZEPAM 2 MG/1 ML VIAL IM STA (20:25)
--- NOTE | 2020-11-23 20:25 | NUR ---
Patient becoming agitated, and uneasy. Requesting medication to help with that. MD Jessica notifed. Verbal orders for Ativan 1mg IM given.
[2020-11-23 20:28] LABS: HEMATOCRIT 42.2 % (31.2-41.9); MEAN CORPUSCULAR HEMOGLOBIN 28.9 uug (24.7-32.8); MEAN CORPUSCULAR VOLUME 87.1 fL (75.5-95.3); PLATELET COUNT (AUTO) 371 K/uL (179-408)
[2020-11-23 20:32] LABS: CREATININE 0.7 mg/dL (0.6-1.3); POTASSIUM 3.9 mmol/L (3.5-5.1)
[2020-11-23] MEDS ORDERED: LORAZEPAM 2 MG/1 ML VIAL ONE (20:33)
[2020-11-23 20:40] LABS: BILIRUBIN,TOTAL 0.4 mg/dL (0.2-1.0); TOTAL PROTEIN, SERUM 7.6 g/dL (6.4-8.2)
--- NOTE | 2020-11-23 21:30 | NUR ---
Patient is resting comfortably in bed with eyes closed, no acute distress noted.
[2020-11-23 22:05] VITALS: BP 159/92
--- NOTE | 2020-11-23 22:11 | NUR ---
Note sherine in ED - 11/23/20 at 2213 by MARTA Patient discharged to home in stable condition via auto with her daughter. Written and verbal after care instructions given. Patient verbalizes understanding of instructions. Stressed follow up or return to ER for worsening s/s. Patient ambulates with steady gait, wheelchaired to vehicle, V/S stable, left with all personal bleongings.
== END 2020-11-23 22:11 | disposition home or self-care (01) ==
LOC: ER 19:23
DX: M54.89 Other dorsalgia (principal); Z87.442 Personal history of urinary calculi; Z90.5 Acquired absence of kidney; F41.0 Panic disorder [episodic paroxysmal anxiety]; Z88.8 Allergy status to other drugs, medicaments and biological substances; M48.02 Spinal stenosis, cervical region; E04.9 Nontoxic goiter, unspecified; Z87.440 Personal history of urinary (tract) infections
CPT/HCPCS: 36415; 72125; 72128; 72131; 74176; 80053; 81001; 85025; 96372; 99285; J2060; A4663

== ENCOUNTER 2021-11-16 16:00 | Emergency (ER) | payer MEDICARE, MEDICAID ==
[~2021-11-16] VITALS: Ht 154.9 cm; Wt 63.5 kg
--- NOTE | 2021-11-16 16:05 | NUR ---
MD at bedside, medical screening exam in progress.
[2021-11-16] MEDS ORDERED: KETOROLAC TROMETHAMINE 15 MG INJ IVP ONE (16:15)
[2021-11-16] MEDS ORDERED: IV NORMAL SALINE 1000 ML BAG IV ONE (16:15)
[2021-11-16] MEDS ORDERED: KETOROLAC TROMETHAMINE 15 MG INJ ONE (16:28)
[2021-11-16 16:49] LABS: HEMATOCRIT 38.9 % (31.2-41.9); MEAN CORPUSCULAR VOLUME 86.4 fL (75.5-95.3); PLATELET COUNT (AUTO) 268 K/uL (179-408)
[2021-11-16 16:53] LABS: BILIRUBIN,DIRECT 0.1 mg/dL (0.0-0.2); BILIRUBIN,TOTAL 0.3 mg/dL (0.2-1.0); TOTAL PROTEIN, SERUM 8.4 g/dL (6.4-8.2)
[2021-11-16] MEDS ORDERED: FENTANYL CITRATE 100 MCG/2 ML AMPUL IV ONE ×2 (17:00→19:15)
[2021-11-16 17:01] LABS: CARBON DIOXIDE 26 mmol/L (21-32); CHLORIDE 100 mmol/L (98-107); CREATININE 0.6 mg/dL (0.6-1.3); GLUCOSE 122 mg/dL (74-106); POTASSIUM 4.4 mmol/L (3.5-5.1); UREA NITROGEN, BLOOD 19 mg/dL (7-18)
[2021-11-16] MEDS ORDERED: FENTANYL CITRATE 100 MCG/2 ML AMPUL ONE ×2 (17:05→19:12)
--- NOTE | 2021-11-16 17:20 | NUR ---
Patient taken to CT.
[2021-11-16 17:55] LABS: *BILIRUBIN,URIN NEGATIVE (NEGATIVE); *CLARITY,URINE CLEAR (CLEAR); *COLOR,URINE YELLOW (YELLOW); *KETONES,URINE 1+ (NEGATIVE); *UROBILINOGEN,URINE 0.2 E.U./dl (NORMAL); LEUKOCYTE ESTERASE ,URINE 1+ (NEGATIVE); NITRITE, URINE NEGATIVE (NEGATIVE); UGLUCOSE NEGATIVE (NEGATIVE)
[2021-11-16 17:58] LABS: *BLOOD, URINE TRACE (NEGATIVE)
[2021-11-16] MEDS ORDERED: CEFTRIAXONE /D5W 50ML IVPB **ER PYXIS IV ONE (18:05)
[2021-11-16] MEDS ORDERED: CEPH500T PO (18:11)
[2021-11-16] MEDS ORDERED: IBUP-1955 PO (18:11)
[2021-11-16] MEDS ORDERED: CEFTRIAXONE 1 G in IV DEXTROSE 5% 50 ML IV ONE (18:15)
--- NOTE | 2021-11-16 19:09 | NUR ---
pt a/o cooperative, c/o pain. informed er .
--- NOTE | 2021-11-16 19:20 | NUR ---
call to pts daughter at [phone] advised her that her mother was given pain medicine and that the er doctor has discharged her.
--- NOTE | 2021-11-16 20:15 | NUR ---
Patient discharged to home in stable condition. Written and verbal after care instructions given. Patient verbalizes understanding of instructions. Stressed follow up or return to ER for worsening s/s. pt daughter arrived to take the pt home. pt is ambulatory denies pain.
[2021-11-16 20:19] VITALS: BP 125/81
[2021-11-16 20:33] LABS: BACTERIA,URINE FEW /HPF (NONE SEEN); SQUAMOUS EPITHELIAL CELL,UR FEW /HPF (NONE SEEN)
== END 2021-11-16 20:19 | disposition home or self-care (01) ==
LOC: ER 16:02
DX: N39.0 Urinary tract infection, site not specified (principal); R10.9 Unspecified abdominal pain; F41.0 Panic disorder [episodic paroxysmal anxiety]; R07.9 Chest pain, unspecified; I10 Essential (primary) hypertension; Z87.442 Personal history of urinary calculi; Z90.5 Acquired absence of kidney; Z88.8 Allergy status to other drugs, medicaments and biological substances; Z79.899 Other long term (current) drug therapy; I44.7 Left bundle-branch block, unspecified; K57.30 Diverticulosis of large intestine without perforation or abscess without bleeding
CPT/HCPCS: 36415; 71045; 74176; 80048; 80076; 81001; 83690; 83880; 84484 ×2; 85025; 87086; 93005; 96361; 96365; 96375; 96376; 99285; J0696; J1885; J3010 ×2; J7040; A4663

== ENCOUNTER 2021-11-18 06:33 | Emergency (ER) | payer MEDICARE, OTHER ==
[~2021-11-18] VITALS: Ht 154.9 cm; Wt 59.0 kg
[~2021-11-18 06:33] MED LIST changes: +CEPH500T PO; +IBUP-1955 PO
--- NOTE | 2021-11-18 06:45 | NUR ---
MD at bedside, medical screening exam in progress.
[2021-11-18] MEDS ORDERED: PROCHLORPERAZINE EDISYLATE 10 MG/2 ML VIAL ONE (06:48)
[2021-11-18] MEDS ORDERED: MORPHINE SULFATE 4 MG/1 ML DISP.SYRIN ONE (06:48)
[2021-11-18] MEDS ORDERED: MORPHINE SULFATE 2 MG/1 ML DISP.SYRIN IV ONE (07:00)
[2021-11-18] MEDS ORDERED: IV NORMAL SALINE 1000 ML BAG IV ONE (07:00)
[2021-11-18] MEDS ORDERED: PROCHLORPERAZINE EDISYLATE 10 MG/2 ML VIAL IV ONE (07:00)
[2021-11-18 07:18] LABS: HEMATOCRIT 38.9 % (31.2-41.9); MEAN CORPUSCULAR HEMOGLOBIN 29.3 uug (24.7-32.8); MEAN CORPUSCULAR VOLUME 85.7 fL (75.5-95.3); PLATELET COUNT (AUTO) 263 K/uL (179-408)
[2021-11-18 07:30] LABS: CREATININE 0.7 mg/dL (0.6-1.3); POTASSIUM 4.2 mmol/L (3.5-5.1)
[2021-11-18 07:36] LABS: BILIRUBIN,DIRECT 0.1 mg/dL (0.0-0.2); BILIRUBIN,TOTAL 0.2 mg/dL (0.2-1.0)
[2021-11-18] MEDS ORDERED: CEFTRIAXONE /D5W 50ML IVPB **ER PYXIS IV ONE (08:27)
[2021-11-18] MEDS ORDERED: CEFTRIAXONE 1 G in IV DEXTROSE 5% 50 ML IV ONE (08:30)
[2021-11-18] MEDS ORDERED: HYDR-4209 PO (08:48)
[2021-11-18] MEDS ORDERED: PROC25SU3 RC (08:48)
[2021-11-18] MEDS ORDERED: PROC10TA29 PO (08:48)
[2021-11-18 09:25] VITALS: BP 144/80
--- NOTE | 2021-11-18 09:25 | NUR ---
Patient discharged to home in stable condition. Written and verbal after care instructions given to pt and daughter. Patient and daughter verbalizes understanding of instructions. Stressed follow up or return to ER for worsening s/s. IV site removed aseptically.
== END 2021-11-18 09:26 | disposition home or self-care (01) ==
LOC: ER 06:36
DX: R11.2 Nausea with vomiting, unspecified (principal); R10.9 Unspecified abdominal pain; N39.0 Urinary tract infection, site not specified; E86.0 Dehydration; Z90.5 Acquired absence of kidney; Z87.442 Personal history of urinary calculi; F41.9 Anxiety disorder, unspecified; Z79.899 Other long term (current) drug therapy
CPT/HCPCS: 36415; 80048; 80076; 83690; 85025; 96361; 96365; 96375; 99284; J0696; J0780; J2270; J7040; A4663

== ENCOUNTER 2023-09-02 07:09 | Emergency (ER) | payer MEDICARE, OTHER ==
[~2023-09-02] VITALS: Ht 162.6 cm; Wt 59.0 kg
[~2023-09-02 07:09] MED LIST changes: +HYDR-4209 PO; +PROC10TA29 PO; +PROC25SU3 RC
[2023-09-02] MEDS: MORPHINE SULFATE 2 MG/1 ML DISP.SYRIN IV ONE (07:45)
[2023-09-02] MEDS ORDERED: MORPHINE SULFATE 2 MG/1 ML DISP.SYRIN ONE (07:48)
[2023-09-02 07:55] LABS: *BLOOD, URINE NEGATIVE (NEGATIVE); *CLARITY,URINE CLEAR (CLEAR); *COLOR,URINE YELLOW (YELLOW); *KETONES,URINE 1+ (NEGATIVE); *PROTEIN,URINE 1+ (NEGATIVE); *UROBILINOGEN,URINE 0.2 E.U./dl (NORMAL); LEUKOCYTE ESTERASE ,URINE 1+ (NEGATIVE); NITRITE, URINE NEGATIVE (NEGATIVE); PH,URINE 5.5 (5.0-8.0); UGLUCOSE NEGATIVE (NEGATIVE)
[2023-09-02] MEDS: IV NORMAL SALINE 1000 ML BAG IV ONE (08:04)
[2023-09-02 08:08] LABS: *BILIRUBIN,URIN 1+ (NEGATIVE)
[2023-09-02 08:11] LABS: BASOPHILS % (AUTO) 0.5 % (0.0-2.0); EOSINOPHILS # (AUTO) 0.1 K/uL (0.0-0.7); EOSINOPHILS % (AUTO) 0.9 % (0.0-7.0); HEMATOCRIT 42.3 % (31.2-41.9); HEMOGLOBIN 14.3 g/dL (10.9-14.3); LYMPHOCYTES # (AUTO) 2.2 K/uL (0.8-4.8); MEAN CORPUSCULAR HGB CONC 34 g/dL (32.3-35.6); MEAN CORPUSCULAR VOLUME 86.1 fL (75.5-95.3); MONOCYTES # (AUTO) 0.7 K/uL (0.1-1.30); MONOCYTES % (AUTO) 7.7 % (0.0-11.0); NEUTROPHILS # (AUTO) 5.9 K/uL (1.8-8.9); NEUTROPHILS % (AUTO) 65.9 % (38.5-71.5); PLATELET COUNT (AUTO) 319 K/uL (179-408); RED BLOOD CELL COUNT(AUTO) 4.91 MIL/uL (3.63-4.92); RED CELL DISTRIBUTION WIDTH 13.1 % (12.3-17.7)
[2023-09-02] MEDS ORDERED: MORPHINE SULFATE 4 MG/1 ML DISP.SYRIN ONE (08:30)
[2023-09-02 08:37] LABS: ALANINE AMINOTRANSFERASE 24 U/L (14-59); ALBUMIN 3.8 g/dL (3.4-5.0); ALKALINE PHOSPHATASE 87 U/L (50-136); ASPARTATE AMINOTRANSFERASE 15 U/L (15-37); BILIRUBIN,DIRECT < 0.1 mg/dL (0.0-0.2); BILIRUBIN,TOTAL 0.3 mg/dL (0.2-1.0); CALCIUM 9.6 mg/dL (8.5-10.1); CARBON DIOXIDE 27 mmol/L (21-32); CHLORIDE 105 mmol/L (98-107); CREATININE 0.7 mg/dL (0.6-1.3); GLUCOSE 128 mg/dL (74-106); TOTAL PROTEIN, SERUM 8.3 g/dL (6.4-8.2); UREA NITROGEN, BLOOD 25 mg/dL (7-18)
[2023-09-02] MEDS: MORPHINE SULFATE 4 MG/1 ML DISP.SYRIN IV ONE (08:40)
[2023-09-02] MEDS ORDERED: METOCLOPRAMIDE HCL 10 MG/2 ML VIAL ONE (08:41)
[2023-09-02] MEDS ORDERED: CEFTRIAXONE /D5W 50ML IVPB **ER PYXIS IV ONE (08:41)
[2023-09-02] MEDS ORDERED: diphenhydrAMINE 50 MG/1 ML VIAL ONE (08:41)
[2023-09-02 08:48] LABS: SODIUM SERUM 142 mmol/L (136-145)
[2023-09-02 08:49] LABS: BACTERIA,URINE MANY /HPF (NONE SEEN); RBC,URINE 0-3 /HPF (0-3); SQUAMOUS EPITHELIAL CELL,UR MANY /HPF (NONE SEEN); WBC,URINE 50-80 /HPF (0-3)
[2023-09-02] MEDS: CEFTRIAXONE 1 G in IV DEXTROSE 5% 50 ML IV ONE (08:57)
[2023-09-02] MEDS: diphenhydrAMINE 50 MG/1 ML VIAL IV ONE (08:57)
[2023-09-02] MEDS: METOCLOPRAMIDE HCL 10 MG/2 ML VIAL IV ONE (08:58)
[2023-09-02 09:41] LABS: POTASSIUM 4.7 mmol/L (3.5-5.1)
[2023-09-02] MEDS ORDERED: PROM25TA15 PO (10:10)
[2023-09-02] MEDS ORDERED: TRAM50TA2 PO (10:10)
[2023-09-02] MEDS ORDERED: AMOX-430 PO (10:10)
[2023-09-02 10:26] VITALS: BP 122/80; TEMP 97; O2SAT 99
== END 2023-09-02 10:27 | disposition home or self-care (01) ==
LOC: ER 07:10
DX: N39.0 Urinary tract infection, site not specified (principal); R10.9 Unspecified abdominal pain; E86.0 Dehydration; Z79.899 Other long term (current) drug therapy; Z88.1 Allergy status to other antibiotic agents
CPT/HCPCS: 99285; 96365; 76700; 96375; 96361; 80076; 80048; 81001; 85025; 87040; 36415; 96376; 83605; 87086; J0696; J1200; J2765; J2270 ×2; J7040; A4606; A4663

== ENCOUNTER 2023-11-20 18:54 | Emergency (ER) | payer MEDICARE, OTHER ==
[~2023-11-20] VITALS: Ht 157.5 cm; Wt 59.0 kg
[~2023-11-20 18:54] MED LIST changes: +AMOX-430 PO; +PROM25TA15 PO; +TRAM50TA2 PO
[2023-11-20] MEDS ORDERED: diphenhydrAMINE 50 MG/1 ML VIAL ONE (19:56)
[2023-11-20] MEDS ORDERED: METOCLOPRAMIDE HCL 10 MG/2 ML VIAL ONE (19:56)
[2023-11-20] MEDS ORDERED: LORAZEPAM 2 MG/1 ML VIAL ONE (19:57)
[2023-11-20 20:09] LABS: BASOPHILS % (AUTO) 0.3 % (0.0-2.0); EOSINOPHILS % (AUTO) 0.1 % (0.0-7.0); HEMOGLOBIN 13.7 g/dL (10.9-14.3); LYMPHOCYTES # (AUTO) 1.6 K/uL (0.8-4.8); LYMPHOCYTES % (AUTO) 24.3 % (20.5-51.5); MEAN CORPUSCULAR HEMOGLOBIN 28.3 uug (24.7-32.8); MEAN CORPUSCULAR HGB CONC 33 g/dL (32.3-35.6); MEAN CORPUSCULAR VOLUME 86.9 fL (75.5-95.3); MONOCYTES # (AUTO) 0.6 K/uL (0.1-1.30); NEUTROPHILS # (AUTO) 4.4 K/uL (1.8-8.9); NEUTROPHILS % (AUTO) 66.3 % (38.5-71.5); PLATELET COUNT (AUTO) 280 K/uL (179-408); RED BLOOD CELL COUNT(AUTO) 4.84 MIL/uL (3.63-4.92); RED CELL DISTRIBUTION WIDTH 13.4 % (12.3-17.7); WHITE BLOOD COUNT (AUTO) 6.7 K/uL (3.8-11.8)
[2023-11-20 20:19] LABS: CALCIUM 9.5 mg/dL (8.5-10.1); CREATININE 0.6 mg/dL (0.6-1.3); POTASSIUM 3.8 mmol/L (3.5-5.1)
[2023-11-20] MEDS: METOCLOPRAMIDE HCL 10 MG/2 ML VIAL IV ONE (20:20)
[2023-11-20] MEDS: LORAZEPAM 2 MG/1 ML VIAL IV ONE (20:20)
[2023-11-20] MEDS: diphenhydrAMINE 50 MG/1 ML VIAL IV ONE (20:20)
[2023-11-20 20:25] LABS: ALBUMIN 3.6 g/dL (3.4-5.0); BILIRUBIN,DIRECT 0.2 mg/dL (0.0-0.2); BILIRUBIN,TOTAL 0.4 mg/dL (0.2-1.0); TOTAL PROTEIN, SERUM 8.2 g/dL (6.4-8.2)
[2023-11-20] MEDS ORDERED: CLONIDINE HCL 0.1 MG TABLET ONE ×3 (20:46→23:49)
[2023-11-20] MEDS ORDERED: MORPHINE SULFATE 2 MG/1 ML DISP.SYRIN ONE (20:46)
[2023-11-20] MEDS ORDERED: BENAZEPRIL HCL 10 MG TABLET ONE (20:46)
[2023-11-20] MEDS: MORPHINE SULFATE 2 MG/1 ML DISP.SYRIN IV ONE (20:53)
[2023-11-20] MEDS: CLONIDINE HCL 0.1 MG TABLET PO ONE ×3 (20:53→23:55)
[2023-11-20] MEDS: BENAZEPRIL HCL 10 MG TABLET PO ONE (20:53)
[2023-11-20] MEDS ORDERED: PROC25SU2 RC (21:20)
[2023-11-20] MEDS ORDERED: LORA-259 PO (21:20)
[2023-11-21] MEDS: IV NORMAL SALINE 1000 ML BAG IV ONE ×2 (02:55→05:15)
[2023-11-21 05:34] VITALS: BP 98/63; TEMP 98; O2SAT 98
== END 2023-11-21 05:23 | disposition home or self-care (01) ==
LOC: ER 18:56
DX: F41.9 Anxiety disorder, unspecified (principal); M79.10 Myalgia, unspecified site; R11.2 Nausea with vomiting, unspecified; Z87.442 Personal history of urinary calculi; R06.02 Shortness of breath; Z98.890 Other specified postprocedural states; Z79.4 Long term (current) use of insulin; Z79.1 Long term (current) use of non-steroidal anti-inflammatories (NSAID); Z79.891 Long term (current) use of opiate analgesic; Z88.1 Allergy status to other antibiotic agents
CPT/HCPCS: 36415; 85025; 93005; A4606; A4663; J1200; J2060; J2270; J2765; J7040

== ENCOUNTER 2023-11-23 02:02 | Emergency (ER) | payer MEDICARE, OTHER ==
[~2023-11-23] VITALS: Ht 157.5 cm; Wt 62.1 kg
[~2023-11-23 02:02] MED LIST changes: +PROC25SU2 RC
[2023-11-23] MEDS: IV NORMAL SALINE 1000 ML BAG IV ONE ×2 (02:30→04:00)
[2023-11-23] MEDS: PROCHLORPERAZINE EDISYLATE 10 MG/2 ML VIAL IV ONE (02:35)
[2023-11-23] MEDS: diphenhydrAMINE 50 MG/1 ML VIAL IV ONE (02:35)
[2023-11-23 02:41] LABS: *BILIRUBIN,URIN NEGATIVE (NEGATIVE); *BLOOD, URINE NEGATIVE (NEGATIVE); *CLARITY,URINE CLEAR (CLEAR); *COLOR,URINE YELLOW (YELLOW); *KETONES,URINE 2+ (NEGATIVE); *PROTEIN,URINE TRACE (NEGATIVE); *UROBILINOGEN,URINE 0.2 E.U./dl (NORMAL); LEUKOCYTE ESTERASE ,URINE TRACE (NEGATIVE); NITRITE, URINE NEGATIVE (NEGATIVE); UGLUCOSE NEGATIVE (NEGATIVE)
[2023-11-23] MEDS ORDERED: diphenhydrAMINE 50 MG/1 ML VIAL ONE (02:43)
[2023-11-23] MEDS ORDERED: PROCHLORPERAZINE EDISYLATE 10 MG/2 ML VIAL ONE (02:43)
[2023-11-23] MEDS ORDERED: LORAZEPAM 2 MG/1 ML VIAL ONE (03:00)
[2023-11-23] MEDS: LORAZEPAM 2 MG/1 ML VIAL IV ONE (03:08)
[2023-11-23 03:14] LABS: BASOPHILS % (AUTO) 0.1 % (0.0-2.0); EOSINOPHILS % (AUTO) 0.2 % (0.0-7.0); HEMATOCRIT 39.8 % (31.2-41.9); HEMOGLOBIN 13.3 g/dL (10.9-14.3); LYMPHOCYTES # (AUTO) 1.5 K/uL (0.8-4.8); LYMPHOCYTES % (AUTO) 23.4 % (20.5-51.5); MEAN CORPUSCULAR HEMOGLOBIN 28.9 uug (24.7-32.8); MEAN CORPUSCULAR HGB CONC 33 g/dL (32.3-35.6); MEAN CORPUSCULAR VOLUME 86.6 fL (75.5-95.3); MONOCYTES # (AUTO) 0.5 K/uL (0.1-1.30); MONOCYTES % (AUTO) 7.7 % (0.0-11.0); NEUTROPHILS # (AUTO) 4.5 K/uL (1.8-8.9); NEUTROPHILS % (AUTO) 68.6 % (38.5-71.5); PLATELET COUNT (AUTO) 237 K/uL (179-408); WHITE BLOOD COUNT (AUTO) 6.6 K/uL (3.8-11.8)
[2023-11-23 03:21] LABS: RBC,URINE 0-3 /HPF (0-3)
[2023-11-23 03:22] LABS: BACTERIA,URINE RARE /HPF (NONE SEEN); SQUAMOUS EPITHELIAL CELL,UR FEW /HPF (NONE SEEN)
[2023-11-23 03:23] LABS: DIFFERENTIAL COMMENT 1
[2023-11-23 03:34] LABS: CALCIUM 8.5 mg/dL (8.5-10.1); CREATININE 0.6 mg/dL (0.6-1.3); POTASSIUM 3.2 mmol/L (3.5-5.1)
[2023-11-23 03:40] LABS: BILIRUBIN,TOTAL 0.5 mg/dL (0.2-1.0); TOTAL PROTEIN, SERUM 6.8 g/dL (6.4-8.2)
[2023-11-23] MEDS ORDERED: IOHEXOL 300MG/ML 100 ML INFUS..BTL ONE (03:55)
[2023-11-23] MEDS ORDERED: SWABABLE VALVE TRANSFER SET EA MC ONE (03:55)
[2023-11-23] MEDS ORDERED: IV NORMAL SALINE 250 ML IV ONE (03:56)
[2023-11-23 11:04] VITALS: BP 145/81; O2SAT 97
== END 2023-11-23 11:04 | disposition home or self-care (01) ==
LOC: ER 02:08
DX: R10.9 Unspecified abdominal pain (principal); R11.2 Nausea with vomiting, unspecified; F41.9 Anxiety disorder, unspecified; G89.29 Other chronic pain; M54.9 Dorsalgia, unspecified; Z88.8 Allergy status to other drugs, medicaments and biological substances; Z79.899 Other long term (current) drug therapy
CPT/HCPCS: 99285; 74177; 96374; 96361; 96375; 80053; 81001; 83690; 85025; 36415; J1200; J2060; Q9967; J0780; J7040 ×2; A4606; A4663

== ENCOUNTER 2023-11-26 03:03 | Emergency (ER) | payer MEDICARE, OTHER ==
[~2023-11-26] VITALS: Ht 157.5 cm; Wt 62.1 kg
[~2023-11-26 03:03] MED LIST changes: -AMOX-430 PO; -CEPH500C2 PO; -CEPH500T PO; -PROC25SU2 RC; -PROM25TA15 PO
[2023-11-26] MEDS ORDERED: hydrALAZINE HCL 20 MG/1 ML VIAL ONE ×2 (03:49→04:16)
[2023-11-26] MEDS: hydrALAZINE HCL 20 MG/1 ML VIAL IV ONE ×2 (03:58→04:29)
[2023-11-26 04:12] LABS: BASOPHILS # (AUTO) 0.1 K/UL (0.0-0.2); BASOPHILS % (AUTO) 0.5 % (0.0-2.0); CALCIUM 9.7 mg/dL (8.5-10.1); CARBON DIOXIDE 28 mmol/L (21-32); CHLORIDE 104 mmol/L (98-107); CREATININE 0.7 mg/dL (0.6-1.3); DIFFERENTIAL COMMENT 1; EOSINOPHILS # (AUTO) 0.1 K/uL (0.0-0.7); EOSINOPHILS % (AUTO) 0.7 % (0.0-7.0); GLUCOSE 150 mg/dL (74-106); HEMATOCRIT 42.3 % (31.2-41.9); LYMPHOCYTES # (AUTO) 2.2 K/uL (0.8-4.8); LYMPHOCYTES % (AUTO) 20.1 % (20.5-51.5); MEAN CORPUSCULAR HEMOGLOBIN 28.6 uug (24.7-32.8); MEAN CORPUSCULAR HGB CONC 33 g/dL (32.3-35.6); MEAN CORPUSCULAR VOLUME 86.4 fL (75.5-95.3); MONOCYTES # (AUTO) 0.6 K/uL (0.1-1.30); MONOCYTES % (AUTO) 5.4 % (0.0-11.0); NEUTROPHILS # (AUTO) 7.9 K/uL (1.8-8.9); NEUTROPHILS % (AUTO) 73.3 % (38.5-71.5); PLATELET COUNT (AUTO) 380 K/uL (179-408); POTASSIUM 3.3 mmol/L (3.5-5.1); RED BLOOD CELL COUNT(AUTO) 4.89 MIL/uL (3.63-4.92); RED CELL DISTRIBUTION WIDTH 13.1 % (12.3-17.7); SODIUM SERUM 143 mmol/L (136-145); UREA NITROGEN, BLOOD 18 mg/dL (7-18); WHITE BLOOD COUNT (AUTO) 10.7 K/uL (3.8-11.8)
[2023-11-26 04:25] LABS: ALANINE AMINOTRANSFERASE 21 U/L (14-59); ALBUMIN 3.8 g/dL (3.4-5.0); ALKALINE PHOSPHATASE 75 U/L (50-136); ASPARTATE AMINOTRANSFERASE 11 U/L (15-37); BILIRUBIN,DIRECT 0.2 mg/dL (0.0-0.2); BILIRUBIN,TOTAL 0.5 mg/dL (0.2-1.0); NT-PRO BNP 163 pg/mL (0-125); TOTAL PROTEIN, SERUM 8.1 g/dL (6.4-8.2)
[2023-11-26] MEDS ORDERED: METOCLOPRAMIDE HCL 10 MG/2 ML VIAL ONE (05:09)
[2023-11-26] MEDS ORDERED: POTASSIUM CHLORIDE 20 MEQ TAB.PRT.SR ONE (05:09)
[2023-11-26] MEDS ORDERED: MORPHINE SULFATE 2 MG/1 ML DISP.SYRIN ONE (05:09)
[2023-11-26] MEDS: MORPHINE SULFATE 2 MG/1 ML DISP.SYRIN IV ONE (05:22)
[2023-11-26] MEDS: METOCLOPRAMIDE HCL 10 MG/2 ML VIAL IV ONE (05:22)
[2023-11-26] MEDS: POTASSIUM CHLORIDE 20 MEQ TAB.PRT.SR PO ONE (05:23)
[2023-11-26] MEDS ORDERED: POTASSIUM CHLORIDE 20 MEQ POWDER PACKET ONE (05:33)
[2023-11-26] MEDS: POTASSIUM CHLORIDE 20 MEQ POWDER PACKET PO ONE (06:19)
[2023-11-26] MEDS: IV NS 1000 ML 1,000 ML IV ONE (06:20)
[2023-11-26] MEDS ORDERED: PROCHLORPERAZINE EDISYLATE 10 MG/2 ML VIAL ONE (06:30)
[2023-11-26] MEDS: PROCHLORPERAZINE EDISYLATE 10 MG/2 ML VIAL IV ONE (06:35)
[2023-11-26 09:33] VITALS: BP 157/85; TEMP 97.3; O2SAT 95
== END 2023-11-26 09:37 | disposition home or self-care (01) ==
LOC: ER 03:04
DX: I16.0 Hypertensive urgency (principal); M79.10 Myalgia, unspecified site; G89.29 Other chronic pain; M54.9 Dorsalgia, unspecified; R07.89 Other chest pain; E87.6 Hypokalemia; F41.9 Anxiety disorder, unspecified; Z87.442 Personal history of urinary calculi; Z98.890 Other specified postprocedural states; Z79.52 Long term (current) use of systemic steroids; Z79.1 Long term (current) use of non-steroidal anti-inflammatories (NSAID); Z88.1 Allergy status to other antibiotic agents
CPT/HCPCS: 99291; 96374; 96375; 80076; 80048; 83880; 85025; 85730; 84484; 36415; 93005 ×2; 71045; 96376; J0360 ×2; J2765; J0780; J2270; J7040; A4606; A4663

== ENCOUNTER 2023-12-04 00:24 | Inpatient (IN) | payer MEDICARE, OTHER ==
[~2023-12-04] VITALS: Ht 157.5 cm; Wt 62.1 kg
[~2023-12-04 00:24] MED LIST changes: -FAMO40TA7 PO; -PROC25SU3 RC
[2023-12-04] MEDS ORDERED: KETOROLAC TROMETHAMINE 15 MG INJ ONE (01:12)
[2023-12-04] MEDS ORDERED: METOCLOPRAMIDE HCL 10 MG/2 ML VIAL ONE (01:12)
[2023-12-04] MEDS ORDERED: diphenhydrAMINE 50 MG/1 ML VIAL ONE (01:12)
[2023-12-04] MEDS: IV NS 1000 ML 1,000 ML IV ONE (01:20)
[2023-12-04 01:26] LABS: CALCIUM 9.2 mg/dL (8.5-10.1); CARBON DIOXIDE 26 mmol/L (21-32); CHLORIDE 105 mmol/L (98-107); CREATININE 0.8 mg/dL (0.6-1.3); GLUCOSE 150 mg/dL (74-106); POTASSIUM 4.7 mmol/L (3.5-5.1); SODIUM SERUM 140 mmol/L (136-145); UREA NITROGEN, BLOOD 12 mg/dL (7-18)
[2023-12-04 01:26] LABS: ABG BASE EXCESS -1.1 mmol/L (-2.0-2.0); ABG HCO3 23.5 mmol/L (22.0-26.0); ABG PCO2 39.3 mmHg (35.0-48.0); ABG PH 7.395 (7.340-7.440); ABG PO2 79.2 mmHg (75.0-100.0); ABG SITE LEFT RADIAL; ABG TOTAL HEMOGLOBIN 13.2 G/dL (12.0-16.0); AaDO2 95.7 mmHg; COHb 0.1 % (0.0-3.9); MetHb 0.2 % (0.0-1.5); O2Hb 95.8 % (94.0-97.0)
[2023-12-04] MEDS ORDERED: LORAZEPAM 2 MG/1 ML VIAL ONE (01:30)
[2023-12-04] MEDS: METOCLOPRAMIDE HCL 10 MG/2 ML VIAL IV ONE (01:30)
[2023-12-04] MEDS: diphenhydrAMINE 50 MG/1 ML VIAL IV ONE (01:30)
[2023-12-04] MEDS: KETOROLAC TROMETHAMINE 15 MG INJ IVP ONE (01:30)
[2023-12-04 01:39] LABS: ALANINE AMINOTRANSFERASE 27 U/L (14-59); ALBUMIN 3.5 g/dL (3.4-5.0); ALKALINE PHOSPHATASE 69 U/L (50-136); ASPARTATE AMINOTRANSFERASE 16 U/L (15-37); BILIRUBIN,DIRECT 0.1 mg/dL (0.0-0.2); BILIRUBIN,TOTAL 0.4 mg/dL (0.2-1.0); NT-PRO BNP 158 pg/mL (0-125); TOTAL PROTEIN, SERUM 7.3 g/dL (6.4-8.2)
[2023-12-04] MEDS: LORAZEPAM 2 MG/1 ML VIAL IV ONE (01:59)
[2023-12-04] MEDS ORDERED: hydrALAZINE HCL IV 20 MG in IV NORMAL SALINE 50 ML IV ONE (02:00)
[2023-12-04] MEDS ORDERED: hydrALAZINE HCL 20 MG/1 ML VIAL ONE (02:07)
[2023-12-04] MEDS: hydrALAZINE HCL 20 MG/1 ML VIAL IV ONE (02:15)
[2023-12-04] MEDS ORDERED: REMEDY ESSENTIAL ZINC PASTE 113 GM TP PRN (06:15)
[2023-12-04] MEDS ORDERED: MAGNESIUM HYDROXIDE 30 ML LIQUID UDC PO PRN (06:15)
[2023-12-04] MEDS ORDERED: Medication Not On Formulary EA (Sertraline Hcl (Zoloft) 1 TAB) PO SCH (09:00)
[2023-12-04] MEDS ORDERED: ACETAMINOPHEN 500 MG TABLET ONE (11:00)
[2023-12-04] MEDS ORDERED: IBUPROFEN 400 MG TABLET ONE (11:00)
[2023-12-04] MEDS: IBUPROFEN 400 MG TABLET PO ONE (11:26)
[2023-12-04] MEDS: ACETAMINOPHEN 500 MG TABLET PO ONE (11:26)
[2023-12-04] MEDS ORDERED: ENOXAPARIN SODIUM 40 MG/0.4 ML DISP.SYRIN SQ ONE (11:29)
[2023-12-04] MEDS ORDERED: PANTOPRAZOLE SODIUM 40 MG TABLET.DR PO ONE (11:29)
[2023-12-04] MEDS: ENOXAPARIN SODIUM 40 MG/0.4 ML DISP.SYRIN SQ SCH (11:30)
[2023-12-04] MEDS: PANTOPRAZOLE SODIUM 40 MG TABLET.DR PO SCH (11:30)
[2023-12-04 12:43] VITALS: BP 179/83; TEMP 98; O2SAT 97
[2023-12-04] MEDS: IV NS 1000 ML 1,000 ML IV PRN (12:43)
[2023-12-04] MEDS: BENAZEPRIL HCL 20 MG TABLET PO SCH (12:43)
[2023-12-04] MEDS: TRAMADOL HCL 50 MG TABLET PO PRN (12:57)
[2023-12-04] MEDS: ONDANSETRON 4 MG/2 ML VIAL IV PRN (13:34)
[2023-12-04 15:42] LABS: CALCIUM 9.4 mg/dL (8.5-10.1)
[2023-12-04 15:44] LABS: BILIRUBIN,DIRECT 0.1 mg/dL (0.0-0.2); BILIRUBIN,TOTAL 0.5 mg/dL (0.2-1.0); CREATININE 0.8 mg/dL (0.6-1.3); PHOSPHOROUS 4.3 mg/dL (2.5-4.9)
[2023-12-04 15:45] LABS: ALBUMIN 3.7 g/dL (3.4-5.0)
[2023-12-04 15:46] LABS: MAGNESIUM 2.1 mg/dL (1.8-2.4); TOTAL PROTEIN, SERUM 7.6 g/dL (6.4-8.2)
[2023-12-04 16:42] LABS: THYROID STIMULATING HORMONE 6.378 mIU/mL (0.358-3.740)
[2023-12-04 17:49] LABS: DIFFERENTIAL COMMENT 1
[2023-12-04 19:58] VITALS: BP 113/69; TEMP 97.8; O2SAT 97
[2023-12-04] MEDS: MIRTAZAPINE 15 MG TABLET PO SCH (20:39)
[2023-12-04 22:15] LABS: HEMATOCRIT 40.8 % (31.2-41.9); HEMOGLOBIN 13.1 g/dL (10.9-14.3); LYMPHOCYTES % (AUTO) 21.6 % (20.5-51.5); MEAN CORPUSCULAR HEMOGLOBIN 28.7 uug (24.7-32.8); MEAN CORPUSCULAR HGB CONC 32 g/dL (32.3-35.6); MEAN CORPUSCULAR VOLUME 89.4 fL (75.5-95.3); NEUTROPHILS % (AUTO) 68.3 % (38.5-71.5); PLATELET COUNT (AUTO) 377 K/uL (179-408); RED BLOOD CELL COUNT(AUTO) 4.57 MIL/uL (3.63-4.92); RED CELL DISTRIBUTION WIDTH 13.9 % (12.3-17.7); WHITE BLOOD COUNT (AUTO) 10.2 K/uL (3.8-11.8)
[2023-12-04 22:16] LABS: BASOPHILS # (AUTO) 0.1 K/UL (0.0-0.2); BASOPHILS % (AUTO) 0.7 % (0.0-2.0); EOSINOPHILS # (AUTO) 0.1 K/uL (0.0-0.7); EOSINOPHILS % (AUTO) 1.1 % (0.0-7.0); LYMPHOCYTES # (AUTO) 2.2 K/uL (0.8-4.8); MONOCYTES # (AUTO) 0.8 K/uL (0.1-1.30); MONOCYTES % (AUTO) 8.3 % (0.0-11.0)
[2023-12-05 05:52] VITALS: BP 134/82; TEMP 98; O2SAT 96
[2023-12-05] MEDS: ENOXAPARIN SODIUM 40 MG/0.4 ML DISP.SYRIN SQ SCH (08:30)
[2023-12-05] MEDS ORDERED: ONDANSETRON 4 MG/2 ML VIAL IV PRN (11:45)
[2023-12-05] MEDS: CEFTRIAXONE 1 G in IV DEXTROSE 5% 50 ML IV SCH (11:54)
[2023-12-05] MEDS: AZITHROMYCIN IV 500 MG in IV DEXTROSE 5% 250 ML IV SCH (12:07)
[2023-12-05 12:11] VITALS: BP 134/75; TEMP 98; O2SAT 93
[2023-12-05 16:00] VITALS: BP 127/80; TEMP 98.5; O2SAT 95
[2023-12-05 16:18] LABS: *BILIRUBIN,URIN NEGATIVE (NEGATIVE); *BLOOD, URINE NEGATIVE (NEGATIVE); *CLARITY,URINE CLEAR (CLEAR); *COLOR,URINE YELLOW (YELLOW); *KETONES,URINE NEGATIVE (NEGATIVE); *PROTEIN,URINE NEGATIVE (NEGATIVE); *UROBILINOGEN,URINE 0.2 E.U./dl (NORMAL); LEUKOCYTE ESTERASE ,URINE TRACE (NEGATIVE); NITRITE, URINE NEGATIVE (NEGATIVE); PH,URINE 5.5 (5.0-8.0); UGLUCOSE NEGATIVE (NEGATIVE)
[2023-12-05 16:42] LABS: BACTERIA,URINE FEW /HPF (NONE SEEN); RBC,URINE 0-3 /HPF (0-3); SQUAMOUS EPITHELIAL CELL,UR FEW /HPF (NONE SEEN)
[2023-12-05] MEDS: MORPHINE SULFATE 2 MG/1 ML DISP.SYRIN IV PRN (18:14)
[2023-12-05] MEDS ORDERED: KETOROLAC TROMETHAMINE 30 MG INJ IVP PRN (19:30)
[2023-12-05] MEDS ORDERED: SWABABLE VALVE TRANSFER SET EA MC ONE (20:22)
[2023-12-05] MEDS ORDERED: IV NORMAL SALINE 250 ML IV ONE (20:22)
[2023-12-05] MEDS ORDERED: IOHEXOL 300MG/ML 100 ML INFUS..BTL ONE (20:22)
[2023-12-05 20:38] VITALS: BP 185/99; TEMP 98.8; O2SAT 95
[2023-12-05] MEDS: hydrALAZINE HCL 25 MG TABLET PO PRN (22:36)
[2023-12-06] MEDS ORDERED: KETOROLAC TROMETHAMINE 15 MG INJ IVP PRN (09:15)
[2023-12-06 12:12] VITALS: BP 122/76; TEMP 98.3; O2SAT 98
[2023-12-06] MEDS ORDERED: KETOROLAC TROMETHAMINE 30 MG INJ IVP PRN (13:30)
[2023-12-06 13:54] LABS: POTASSIUM 3.9 mmol/L (3.5-5.1)
[2023-12-06 13:55] LABS: CREATININE 0.5 mg/dL (0.6-1.3); MAGNESIUM 1.9 mg/dL (1.8-2.4); PHOSPHOROUS 4.2 mg/dL (2.5-4.9)
[2023-12-06 14:12] LABS: BASOPHILS # (AUTO) 0.1 K/UL (0.0-0.2); BASOPHILS % (AUTO) 0.7 % (0.0-2.0); EOSINOPHILS # (AUTO) 0.1 K/uL (0.0-0.7); EOSINOPHILS % (AUTO) 1.6 % (0.0-7.0); HEMATOCRIT 36.4 % (31.2-41.9); HEMOGLOBIN 11.8 g/dL (10.9-14.3); LYMPHOCYTES # (AUTO) 1.7 K/uL (0.8-4.8); LYMPHOCYTES % (AUTO) 22.2 % (20.5-51.5); MEAN CORPUSCULAR HEMOGLOBIN 28.8 uug (24.7-32.8); MEAN CORPUSCULAR HGB CONC 32 g/dL (32.3-35.6); MEAN CORPUSCULAR VOLUME 88.9 fL (75.5-95.3); MONOCYTES # (AUTO) 0.6 K/uL (0.1-1.30); MONOCYTES % (AUTO) 7.9 % (0.0-11.0); NEUTROPHILS # (AUTO) 5.1 K/uL (1.8-8.9); NEUTROPHILS % (AUTO) 67.6 % (38.5-71.5); PLATELET COUNT (AUTO) 294 K/uL (179-408); RED CELL DISTRIBUTION WIDTH 13.5 % (12.3-17.7); WHITE BLOOD COUNT (AUTO) 7.5 K/uL (3.8-11.8)
[2023-12-06 14:15] LABS: DIFFERENTIAL COMMENT 1
[2023-12-06] MEDS: ACETAMINOPHEN 325 MG TABLET PO PRN (17:07)
[2023-12-06 20:35] VITALS: BP 140/89; TEMP 98.5; O2SAT 98
[2023-12-07 06:11] VITALS: BP 186/102; TEMP 98.1; O2SAT 96
[2023-12-07 06:43] LABS: BASOPHILS % (AUTO) 0.5 % (0.0-2.0); EOSINOPHILS # (AUTO) 0.1 K/uL (0.0-0.7); EOSINOPHILS % (AUTO) 1.5 % (0.0-7.0); HEMATOCRIT 36.7 % (31.2-41.9); LYMPHOCYTES # (AUTO) 1.7 K/uL (0.8-4.8); LYMPHOCYTES % (AUTO) 26.2 % (20.5-51.5); MEAN CORPUSCULAR HEMOGLOBIN 28.7 uug (24.7-32.8); MEAN CORPUSCULAR HGB CONC 33 g/dL (32.3-35.6); MONOCYTES # (AUTO) 0.4 K/uL (0.1-1.30); MONOCYTES % (AUTO) 6.6 % (0.0-11.0); NEUTROPHILS # (AUTO) 4.2 K/uL (1.8-8.9); NEUTROPHILS % (AUTO) 65.2 % (38.5-71.5); PLATELET COUNT (AUTO) 268 K/uL (179-408); RED BLOOD CELL COUNT(AUTO) 4.17 MIL/uL (3.63-4.92); RED CELL DISTRIBUTION WIDTH 13.2 % (12.3-17.7); WHITE BLOOD COUNT (AUTO) 6.4 K/uL (3.8-11.8)
[2023-12-07 06:51] LABS: DIFFERENTIAL COMMENT 1
[2023-12-07 06:57] LABS: CALCIUM 8.8 mg/dL (8.5-10.1); CREATININE 0.5 mg/dL (0.6-1.3); MAGNESIUM 1.9 mg/dL (1.8-2.4); PHOSPHOROUS 3.8 mg/dL (2.5-4.9); POTASSIUM 3.6 mmol/L (3.5-5.1)
[2023-12-07 12:00] VITALS: BP 166/92; TEMP 98; O2SAT 96
[2023-12-07] MEDS: IBUPROFEN 600 MG TABLET PO PRN (12:05)
[2023-12-07] MEDS: ENSURE WITH FIBER 237 ML LIQUID (CHOCOLATE) PO SCH (13:37)
[2023-12-07 16:08] VITALS: BP 158/81; TEMP 98.7; O2SAT 97
[2023-12-07 20:00] VITALS: BP 188/102; TEMP 98.3; O2SAT 93
[2023-12-07 21:22] VITALS: BP 189/101; TEMP 98.3; O2SAT 95
[2023-12-07] MEDS ORDERED: CLONIDINE HCL 0.1 MG TABLET PO PRN ×2 (23:45)
[2023-12-08] MEDS: HYDROCODONE/APAP 5-325MG TABLET PO PRN (00:05)
[2023-12-08] MEDS: LORAZEPAM 1 MG TABLET PO PRN (00:15)
[2023-12-08] MEDS: CLONIDINE HCL 0.1 MG TABLET PO PRN (00:18)
[2023-12-08 06:56] LABS: BASOPHILS % (AUTO) 0.4 % (0.0-2.0); EOSINOPHILS # (AUTO) 0.2 K/uL (0.0-0.7); EOSINOPHILS % (AUTO) 2.9 % (0.0-7.0); HEMATOCRIT 33.7 % (31.2-41.9); LYMPHOCYTES # (AUTO) 2.3 K/uL (0.8-4.8); LYMPHOCYTES % (AUTO) 36.5 % (20.5-51.5); MEAN CORPUSCULAR HEMOGLOBIN 28.7 uug (24.7-32.8); MEAN CORPUSCULAR HGB CONC 33 g/dL (32.3-35.6); MEAN CORPUSCULAR VOLUME 88.1 fL (75.5-95.3); MONOCYTES # (AUTO) 0.4 K/uL (0.1-1.30); MONOCYTES % (AUTO) 7.2 % (0.0-11.0); NEUTROPHILS # (AUTO) 3.3 K/uL (1.8-8.9); PLATELET COUNT (AUTO) 275 K/uL (179-408); RED BLOOD CELL COUNT(AUTO) 3.83 MIL/uL (3.63-4.92); RED CELL DISTRIBUTION WIDTH 13.5 % (12.3-17.7); WHITE BLOOD COUNT (AUTO) 6.2 K/uL (3.8-11.8)
[2023-12-08 07:10] LABS: DIFFERENTIAL COMMENT 1
[2023-12-08 07:16] LABS: CALCIUM 8.6 mg/dL (8.5-10.1); CREATININE 0.5 mg/dL (0.6-1.3); MAGNESIUM 2.1 mg/dL (1.8-2.4); POTASSIUM 3.7 mmol/L (3.5-5.1)
[2023-12-08 11:46] VITALS: BP 140/83; TEMP 97.9; O2SAT 95
[2023-12-08] MEDS ORDERED: AMLO5TAB4 PO (12:32)
[2023-12-08] MEDS ORDERED: LEVO500T90 PO (12:32)
[2023-12-08 15:44] VITALS: BP 150/92; TEMP 98.3; O2SAT 97
== END 2023-12-08 16:45 | disposition home or self-care (01) | DRG 689 ==
LOC: ER 00:35 → TELE3 11:27 → MEDSURG3 12:17
PROVIDERS: ADMIT Nurse Practitioner Family; ATTEND Student in an Organized Health Care Education/Training Program
PROC: 05HB33Z Insertion of Infusion Device into Right Basilic Vein, Percutaneous Approach (ICD-10-PCS; principal; 2023-12-05)
DX: N39.0 Urinary tract infection, site not specified (principal); J15.9 Unspecified bacterial pneumonia; B96.89 Other specified bacterial agents as the cause of diseases classified elsewhere; R62.7 Adult failure to thrive; E86.0 Dehydration; M51.36 Other intervertebral disc degeneration, lumbar region; M48.061 Spinal stenosis, lumbar region without neurogenic claudication; F32.A Depression, unspecified; I10 Essential (primary) hypertension; Z79.899 Other long term (current) drug therapy; Z90.5 Acquired absence of kidney; Z87.442 Personal history of urinary calculi; F41.0 Panic disorder [episodic paroxysmal anxiety]; Z87.39 Personal history of other diseases of the musculoskeletal system and connective tissue; Z87.440 Personal history of urinary (tract) infections; Z87.891 Personal history of nicotine dependence; R94.6 Abnormal results of thyroid function studies
CPT/HCPCS: 36415; 36600; 71045; 83605; 83735; 84100; 84443; 84484; 85025; 87040; 93005; A4663; A9150; G0378; J0360; J0456; J0696; J1200; J1650; J1885; J2060; J2270; J2405; J2765; J7040; J7050; Q9967

== ENCOUNTER 2024-07-13 07:08 | Emergency (ER) | payer MEDICARE, OTHER ==
[~2024-07-13] VITALS: Ht 154.9 cm; Wt 59.0 kg
[~2024-07-13 07:08] MED LIST changes: -ALPR1TAB7 PO; +AMLO5TAB4 PO; -HYDR-3641 PO; +LEVO500T90 PO; -SERT25TA PO
[2024-07-13] MEDS ORDERED: PROCHLORPERAZINE EDISYLATE 10 MG/2 ML VIAL ONE (07:59)
[2024-07-13] MEDS ORDERED: MORPHINE SULFATE 4 MG/1 ML DISP.SYRIN ONE (08:00)
[2024-07-13] MEDS: IV NORMAL SALINE 1000 ML BAG IV ONE (08:03)
[2024-07-13] MEDS: PROCHLORPERAZINE EDISYLATE 10 MG/2 ML VIAL IV ONE (08:03)
[2024-07-13] MEDS: MORPHINE SULFATE 4 MG/1 ML DISP.SYRIN IV ONE (08:04)
[2024-07-13 08:23] LABS: *BILIRUBIN,URIN NEGATIVE (NEGATIVE); *BLOOD, URINE NEGATIVE (NEGATIVE); *CLARITY,URINE CLEAR (CLEAR); *COLOR,URINE YELLOW (YELLOW); *KETONES,URINE 1+ (NEGATIVE); *PROTEIN,URINE 1+ (NEGATIVE); *UROBILINOGEN,URINE 0.2 E.U./dl (NORMAL); LEUKOCYTE ESTERASE ,URINE NEGATIVE (NEGATIVE); NITRITE, URINE NEGATIVE (NEGATIVE); UGLUCOSE NEGATIVE (NEGATIVE)
[2024-07-13 08:32] LABS: BASOPHILS % (AUTO) 0.2 % (0.0-2.0); EOSINOPHILS % (AUTO) 0.1 % (0.0-7.0); HEMATOCRIT 37.4 % (31.2-41.9); HEMOGLOBIN 12.6 g/dL (10.9-14.3); LYMPHOCYTES % (AUTO) 11.8 % (20.5-51.5); MEAN CORPUSCULAR HEMOGLOBIN 29.3 uug (24.7-32.8); MEAN CORPUSCULAR HGB CONC 34 g/dL (32.3-35.6); MEAN CORPUSCULAR VOLUME 87.3 fL (75.5-95.3); MONOCYTES # (AUTO) 0.2 K/uL (0.1-1.30); MONOCYTES % (AUTO) 2.3 % (0.0-11.0); NEUTROPHILS % (AUTO) 85.6 % (38.5-71.5); PLATELET COUNT (AUTO) 248 K/uL (179-408); RED BLOOD CELL COUNT(AUTO) 4.29 MIL/uL (3.63-4.92); WHITE BLOOD COUNT (AUTO) 8.2 K/uL (3.8-11.8)
[2024-07-13 08:40] LABS: DIFFERENTIAL COMMENT 1
[2024-07-13 08:41] LABS: CALCIUM 9.1 mg/dL (8.5-10.1); CREATININE 0.5 mg/dL (0.6-1.3); POTASSIUM 3.7 mmol/L (3.5-5.1)
[2024-07-13 08:47] LABS: ALBUMIN 3.6 g/dL (3.4-5.0); BILIRUBIN,DIRECT 0.1 mg/dL (0.0-0.2); BILIRUBIN,TOTAL 0.4 mg/dL (0.2-1.0); TOTAL PROTEIN, SERUM 7.4 g/dL (6.4-8.2)
[2024-07-13 08:49] LABS: BACTERIA,URINE FEW /HPF (NONE SEEN); RBC,URINE 0-3 /HPF (0-3); SQUAMOUS EPITHELIAL CELL,UR MODERATE /HPF (NONE SEEN); WBC,URINE 0-3 /HPF (0-3)
[2024-07-13] MEDS ORDERED: PROC-11 PO (10:29)
[2024-07-13] MEDS ORDERED: OXYC-128 PO (10:29)
[2024-07-13 11:11] VITALS: BP 115/68; TEMP 97.5; O2SAT 97
== END 2024-07-13 11:12 | disposition home or self-care (01) ==
LOC: ER 07:21
DX: G89.29 Other chronic pain (principal); M54.50 Low back pain, unspecified; R10.9 Unspecified abdominal pain; R11.2 Nausea with vomiting, unspecified; F41.9 Anxiety disorder, unspecified; Z79.899 Other long term (current) drug therapy; Z88.7 Allergy status to serum and vaccine
CPT/HCPCS: 99285; 74176; 96374; 96361; 96375; 80076; 80048; 81001; 85025; 87040; 36415; J0780; J2270; J7040; A4606; A4663

== ENCOUNTER 2025-04-26 15:37 | Emergency (ER) | payer MEDICARE, OTHER ==
[~2025-04-26] VITALS: Ht 154.9 cm; Wt 59.0 kg
[~2025-04-26 15:37] MED LIST changes: -AMLO5TAB4 PO; +AMLO5TAB6 PO; -IBUP-1955 PO; +IBUP600T51 PO; +LEVO-43 PO; -LEVO500T90 PO; +OXYC-128 PO; +PROC-11 PO; +PROC-2 PO; -PROC10TA29 PO
[2025-04-26 17:06] LABS: PLATELET COUNT (AUTO) 314 K/uL (179-408); RED BLOOD CELL COUNT(AUTO) 4.89 MIL/uL (3.63-4.92); RED CELL DISTRIBUTION WIDTH 13.2 % (12.3-17.7); WHITE BLOOD COUNT (AUTO) 7.0 K/uL (3.8-11.8)
[2025-04-26 17:14] LABS: CREATININE 0.5 mg/dL (0.6-1.3); SODIUM SERUM 139 mmol/L (136-145); UREA NITROGEN, BLOOD 12 mg/dL (7-18)
[2025-04-26 17:20] LABS: *BILIRUBIN,URIN NEGATIVE (NEGATIVE); *CLARITY,URINE CLEAR (CLEAR); *COLOR,URINE YELLOW (YELLOW); *KETONES,URINE 3+ (NEGATIVE); *PROTEIN,URINE NEGATIVE (NEGATIVE); *UROBILINOGEN,URINE 0.2 E.U./dl (NORMAL); LEUKOCYTE ESTERASE ,URINE TRACE (NEGATIVE); NITRITE, URINE NEGATIVE (NEGATIVE); UGLUCOSE NEGATIVE (NEGATIVE)
[2025-04-26 17:20] LABS: ASPARTATE AMINOTRANSFERASE 16 U/L (15-37); TOTAL PROTEIN, SERUM 8.2 g/dL (6.4-8.2)
[2025-04-26 17:21] LABS: *BLOOD, URINE TRACE (NEGATIVE)
[2025-04-26] MEDS ORDERED: LORAZEPAM 0.5 MG TABLET PO ONE (17:30)
[2025-04-26] MEDS ORDERED: ONDANSETRON 4 MG/2 ML VIAL ONE (17:41)
[2025-04-26] MEDS ORDERED: HYDROMORPHONE 1 MG/1 ML DISP.SYRIN ONE (17:41)
[2025-04-26] MEDS ORDERED: LORAZEPAM 2 MG/1 ML VIAL ONE (17:42)
[2025-04-26] MEDS: LORAZEPAM 2 MG/1 ML VIAL IV ONE (17:48)
[2025-04-26] MEDS: IV NS 1000 ML 1,000 ML IV ONE (17:48)
[2025-04-26] MEDS: HYDROMORPHONE 1 MG/1 ML DISP.SYRIN IV ONE (17:49)
[2025-04-26] MEDS: ONDANSETRON 4 MG/2 ML VIAL IV ONE (17:53)
[2025-04-26] MEDS ORDERED: CLONIDINE HCL 0.1 MG TABLET ONE (17:55)
[2025-04-26] MEDS: CLONIDINE HCL 0.1 MG TABLET PO ONE (17:57)
[2025-04-26] MEDS ORDERED: DULO20CA19 PO (18:20)
[2025-04-26] MEDS ORDERED: BENA-11 PO (18:20)
[2025-04-26] MEDS ORDERED: LORA-259 PO (18:20)
[2025-04-26 22:00] VITALS: BP 135/87
[2025-04-26 23:57] VITALS: BP 124/84; O2SAT 98
== END 2025-04-26 22:50 | disposition home or self-care (01) ==
LOC: ER 15:42
DX: F32.A Depression, unspecified (principal); F41.9 Anxiety disorder, unspecified; I10 Essential (primary) hypertension; Z79.899 Other long term (current) drug therapy; Z87.442 Personal history of urinary calculi; Z88.7 Allergy status to serum and vaccine; R06.02 Shortness of breath
CPT/HCPCS: 99285; 74176; 96374; 96375; 96361; 80076; 80048; 81001; 82607; 83880; 83735; 85025; 85651; 84484; 36415; 93005; J2060; J2405; J1171; A4606; A4663

== ENCOUNTER 2025-05-02 07:09 | Emergency (ER) | payer MEDICARE, OTHER ==
[~2025-05-02] VITALS: Ht 154.9 cm; Wt 59.0 kg
[~2025-05-02 07:09] MED LIST changes: +BENA-11 PO; -BENA40TA67 PO; +DULO20CA19 PO; -LEVO-43 PO; -OXYC-128 PO; -PROC-11 PO
[2025-05-02 07:40] VITALS: BP 174/97
[2025-05-02] MEDS ORDERED: HYDROMORPHONE 1 MG/1 ML DISP.SYRIN ONE (08:54)
[2025-05-02] MEDS ORDERED: LORAZEPAM 1 MG TABLET ONE (08:54)
[2025-05-02 09:03] LABS: *BILIRUBIN,URIN NEGATIVE (NEGATIVE); *CLARITY,URINE CLEAR (CLEAR); *COLOR,URINE YELLOW (YELLOW); *KETONES,URINE TRACE (NEGATIVE); *PROTEIN,URINE 1+ (NEGATIVE); *UROBILINOGEN,URINE 0.2 E.U./dl (NORMAL); LEUKOCYTE ESTERASE ,URINE TRACE (NEGATIVE); NITRITE, URINE NEGATIVE (NEGATIVE); UGLUCOSE NEGATIVE (NEGATIVE)
[2025-05-02] MEDS: LORAZEPAM 0.5 MG TABLET PO ONE (09:03)
[2025-05-02] MEDS: HYDROMORPHONE 1 MG/1 ML DISP.SYRIN IM ONE (09:03)
[2025-05-02 09:15] LABS: *BLOOD, URINE TRACE (NEGATIVE)
[2025-05-02 09:16] LABS: SQUAMOUS EPITHELIAL CELL,UR FEW /HPF (NONE SEEN); URINE AMORPHOUS URATE FEW /HPF
[2025-05-02 09:17] LABS: CREATININE 0.5 mg/dL (0.6-1.3); SODIUM SERUM 136.0 mmol/L (136-145); UREA NITROGEN, BLOOD 15.0 mg/dL (7-18)
[2025-05-02 09:23] LABS: PLATELET COUNT (AUTO) 288 K/uL (179-408); RED BLOOD CELL COUNT(AUTO) 4.54 MIL/uL (3.63-4.92); RED CELL DISTRIBUTION WIDTH 13.1 % (12.3-17.7); WHITE BLOOD COUNT (AUTO) 6.8 K/uL (3.8-11.8)
[2025-05-02] MEDS ORDERED: GENTAMICIN SULFATE 20 MG/2 ML VIAL IV ONE (10:15)
[2025-05-02] MEDS ORDERED: SULF1TAB48 PO (10:18)
[2025-05-02] MEDS ORDERED: GENTAMICIN SULFATE 80 MG/2 ML VIAL ONE (10:34)
[2025-05-02] MEDS ORDERED: SULFAMETH/TRIMETH 800/160 MG TABLET ONE (10:40)
[2025-05-02] MEDS: SULFAMETH/TRIMETH 800/160 MG TABLET PO ONE (10:40)
[2025-05-02 11:03] VITALS: BP 137/84; TEMP 98; O2SAT 97
== END 2025-05-02 11:04 | disposition home or self-care (01) ==
LOC: ER 07:09
DX: F41.9 Anxiety disorder, unspecified (principal); G89.4 Chronic pain syndrome; F11.90 Opioid use, unspecified, uncomplicated; Z79.899 Other long term (current) drug therapy; Z87.442 Personal history of urinary calculi; Z88.7 Allergy status to serum and vaccine
CPT/HCPCS: 99283; 80048; 81001; 85025; 87086; 36415; 96372; J1171; A4606; A4663; J1580

== ENCOUNTER 2025-05-04 00:28 | Emergency (ER) | payer MEDICARE, OTHER ==
[~2025-05-04] VITALS: Ht 154.9 cm; Wt 59.0 kg
[~2025-05-04 00:28] MED LIST changes: +SULF1TAB48 PO
[2025-05-04 00:51] VITALS: BP 205/90
[2025-05-04] MEDS ORDERED: PROCHLORPERAZINE EDISYLATE 10 MG/2 ML VIAL ONE (01:26)
[2025-05-04] MEDS ORDERED: HYDROMORPHONE 1 MG/1 ML DISP.SYRIN ONE (01:26)
[2025-05-04] MEDS: PROCHLORPERAZINE EDISYLATE 10 MG/2 ML VIAL IV ONE (01:38)
[2025-05-04] MEDS: IV NORMAL SALINE 500 ML IV ONE (01:38)
[2025-05-04] MEDS: HYDROMORPHONE 1 MG/1 ML DISP.SYRIN IV ONE (01:38)
[2025-05-04 01:53] LABS: PLATELET COUNT (AUTO) 253 K/uL (179-408); RED BLOOD CELL COUNT(AUTO) 4.31 MIL/uL (3.63-4.92); RED CELL DISTRIBUTION WIDTH 13.1 % (12.3-17.7); WHITE BLOOD COUNT (AUTO) 5.9 K/uL (3.8-11.8)
[2025-05-04 02:02] LABS: CREATININE 0.6 mg/dL (0.6-1.3); SODIUM SERUM 141.0 mmol/L (136-145); UREA NITROGEN, BLOOD 15.0 mg/dL (7-18)
[2025-05-04 02:06] LABS: *BILIRUBIN,URIN 1+ (NEGATIVE); *BLOOD, URINE NEGATIVE (NEGATIVE); *CLARITY,URINE CLEAR (CLEAR); *COLOR,URINE YELLOW (YELLOW); *KETONES,URINE TRACE (NEGATIVE); *PROTEIN,URINE TRACE (NEGATIVE); *UROBILINOGEN,URINE 0.2 E.U./dl (NORMAL); LEUKOCYTE ESTERASE ,URINE NEGATIVE (NEGATIVE); NITRITE, URINE NEGATIVE (NEGATIVE); UGLUCOSE NEGATIVE (NEGATIVE)
[2025-05-04 02:08] LABS: ASPARTATE AMINOTRANSFERASE 15.0 U/L (15-37); TOTAL PROTEIN, SERUM 6.8 g/dL (6.4-8.2)
[2025-05-04 02:10] LABS: SQUAMOUS EPITHELIAL CELL,UR MODERATE /HPF (NONE SEEN)
[2025-05-04] MEDS ORDERED: PROC-11 PO (02:32)
[2025-05-04] MEDS ORDERED: TRAM50TA2 PO (02:32)
[2025-05-04 03:04] VITALS: BP 130/80; TEMP 98; O2SAT 95
== END 2025-05-04 03:05 | disposition home or self-care (01) ==
LOC: ER 00:31
DX: R10.A3 Flank pain, bilateral (principal); R11.2 Nausea with vomiting, unspecified; R03.0 Elevated blood-pressure reading, without diagnosis of hypertension; F41.9 Anxiety disorder, unspecified; R06.02 Shortness of breath; G89.4 Chronic pain syndrome; Z79.899 Other long term (current) drug therapy; Z87.442 Personal history of urinary calculi; Z88.7 Allergy status to serum and vaccine
CPT/HCPCS: 99284; 96374; 96361; 96375; 80053; 81001; 83880; 83690; 85025; 84484; 36415; 93005; J0780; J1171; J7040; A4606; A4663